=== PATIENT | female | born 1955 | race Caucasian/White ===

== ENCOUNTER 2025-05-02 19:47 | Inpatient (IN) | payer MEDICARE, OTHER, SELFPAY ==
[2025-05-02] VITALS (9 sets, daily range): BP systolic 133–157; BP diastolic 61–85; BMI 26.9; BMI 26.7
[2025-05-02 14:30] LABS: Hematocrit 37.3 % (37.0-47.0); Hemoglobin 12.8 g/dL (12.0-16.0); Mean Corp Hgb Conc. 34.3 g/dL (33.0-37.0); Mean Corpuscular Volume 84.0 fL (81.0-99.0); Platelet Count 222 10^3/uL (130-400); Red Cell Dist. Width 13.7 % (11.5-14.5)
[2025-05-02 14:47] LABS: ALT (SGPT) 86 U/L (0-35); AST (SGOT) 46 U/L (14-36); Albumin 4.4 g/dl (3.5-5.0); Alkaline Phosphatase 118 U/L (38-126); Blood Urea Nitrogen 27 mg/dl (7-17); Calcium 9.4 mg/dl (8.4-10.2); Carbon Dioxide 26 mmol/L (22-30); Chloride 103 mmol/L (98-107); Glucose 126 mg/dl (70-99); Potassium 3.4 mmol/L (3.5-5.1); Sodium 137 mmol/L (135-145); Total Protein 6.6 g/dl (6.3-8.2); eGFR > 60.00
[2025-05-02] MEDS: NSS 1000 IV ×2 (15:07→23:18)
[2025-05-02] MEDS: LOMOTIL 1 TABLET PO (15:08)
[2025-05-02] MEDS: ZOFRAN 4 MG IV (15:09)
[2025-05-02 15:14] LABS: Absolute Neutrophils -Man Diff 19.9 10^3/uL (1.4-6.5)
[2025-05-02 15:15] LABS: Anisocytosis 1+; Macrocytosis 1+; Normal RBC Morphology No; Platelets Checked Yes
[2025-05-02 15:16] LABS: Hypochromasia 1+; Microcytosis 1+; Polychromasia Slight; Total Cells Counted 100
[2025-05-02] MEDS: BENADRYL 25 MG IV (17:16)
[2025-05-02] MEDS: REGLAN 10 MG IV (17:16)
--- NOTE | 2025-05-02 17:38 | ED.GENMED ---
History of Present Illness
General
Chief Complaint: Abdominal Symptoms
Source: patient
Time Seen by Provider: 05/02/25 14:27
History of Present Illness
History of Present Illness:
Note:
CHIEF COMPLAINT(S)
Constant diarrhea and vomiting following chemotherapy for breast cancer.
HISTORY OF PRESENT ILLNESS
The patient is a 69-year-old female with a history of recurrent lobular breast cancer presenting with persistent diarrhea and vomiting since Thursday after starting chemotherapy. The chemotherapy was administered on Thursday. She reported losing 11
pounds due to these symptoms and requested intervention to stop the diarrhea. The symptoms were severe enough that she was unable to reach the bathroom in time. The patient indicated that she had experienced similar symptoms in the past after
chemotherapy but was advised to go to a different hospital and was not aware she could be treated locally. She had contacted her oncologist�s nurse for guidance, and they sent a letter to the current hospital. She denied any fever and any contact
with sick individuals. Her recent white blood cell count dropped to around 400.
EXTERNAL RECORDS REVIEWED
The patient mentioned that a nurse from her oncologist, Dr. Carter, sent a letter regarding her condition and treatment plan for review.
CHRONIC MEDICAL CONDITIONS SIGNIFICANTLY AFFECTING CARE
Recurrent lobular breast cancer.
PHYSICAL EXAM
General: Alert, no acute distress observed.
Skin: Warm, dry.
Head: Normocephalic, atraumatic.
Neck: Supple, trachea midline.
Eye Ears, nose, mouth and throat: Oral mucosa moist.
Cardiovascular: Normal peripheral perfusion, no edema.
Respiratory: Respirations are non-labored.
Gastrointestinal: Abdomen non-tender upon examination, nondistended.
Back: Normal range of motion, normal alignment.
Musculoskeletal: Normal ROM, normal strength.
Neurological: Alert and oriented to person, place, time, and situation, no focal neurological deficits observed.
Psychiatric: Cooperative, appropriate mood and affect.
PROBLEM LIST
Acute:
- Chemotherapy-induced diarrhea and vomiting.
Chronic:
- Recurrent lobular breast cancer.
PLAN
1. Administer intravenous fluids for rehydration.
2. Administer intravenous ondansetron as an anti-nausea medication.
3. Consider using loperamide (Imodium) or diphenoxylate/atropine (Lomotil) for diarrhea management, based on her response.
4. Continue monitoring her symptoms and hydration status.
5. Reassess and escalate antiemetic or antidiarrheal treatments if initial measures are ineffective.
6. Send a stool sample for culture and testing to rule out any infectious causes for diarrhea if conditions worsen or symptoms persist.
7. Encourage the patient to try ice chips and gradually introduce oral intake as tolerated.
DIFFERENTIAL DIAGNOSIS
The Differential Diagnosis includes, in no particular order and is not limited to:
1. Chemotherapy-induced gastroenteritis
2. Infectious gastroenteritis
3. Medication side effects
4. Dehydration
5. Neutropenic enterocolitis
6. Inflammatory bowel disease exacerbation
7. Gastric retention
8. Electrolyte imbalances
9. Small bowel obstruction
10. Pancreatitis
CARE-UPDATE
05/02/25 - 14:58
Patient was instructed to continue oral intake as tolerated and to proceed to the hospital for IV hydration if symptoms persist or worsen. No new acute findings; monitoring at present.
ED Referral Note from [facility]
69yr old w/ ER+/RI+/HER2+ breast cancer in the left axilla diagnosed in 2024
She also has a prior hx of breast cancer in 2002 and 2012
She is s/p bilateral mastectomy completed in 2002
She also has a pacemaker for Grade I Diastolic Dysfunction and follows w/ cardio-oncologist Dr. Mosquera.
She is currently undergoing [facility] from 04/03/2025-present for breast cancer treatment.
Her last infusion was completed 04/24/2025. She reported severe nausea and vomiting over the weekend 04/29-04/30 and was unable to keep food or liquids down. She reported blood in stool and emesis 04/30 but this has since resolved. She is severely
exhausted and is having difficulty speaking. This is ongoing.
Vomiting and diarrhea resolved 05/01 with zofran and lomotil but pt is was still having difficulty with PO intake of fluids and food.
Today 05/02 she reports sore/inflamed GI tract and no ability to taste furthering difficulty with PO intake. She received IV fluids today with [facility] which helped but is still unable to eat. RN advised pt to present to [place] ED for
evaluation of ongoing diarrhea, vomiting, lack of PO intake, and difficulty speaking.
Pt denies chest pain, SOB, fevers, chills, mouth sores, rashes, vomiting, and diarrhea today.
Pt plans to present to [facility] ED today 05/02/2025
I've communicated to her she may have a wait depending on the hospital's boarding situation.
Disposition:
SUMMARY OF ENCOUNTER
The patient, a 69-year-old female undergoing chemotherapy for recurrent lobular breast cancer, presented to the emergency department with persistent nausea and inability to take in fluids leading to dehydration. The nausea is likely a side effect of
chemotherapy. In response to these symptoms, intravenous fluids with dextrose were offered for hydration and symptom control.
DISPOSITION
Admit
EMERGENCY TREATMENTS ADMINISTERED
Intravenous fluids with dextrose.
MANAGEMENT OF THE PATIENTS CARE WAS DISCUSSED WITH
Case was discussed with the patients oncologic nurse at [place].
PLAN
Admit the patient for intravenous hydration and symptom control due to persistent nausea and dehydration likely from chemotherapy side effects.
MEDICATION RECONCILIATION
Administered intravenous fluids with dextrose. Patient received IV Zofran and IV Reglan.
Patient received normal saline solution
Review of labs
My dependent review of the patient's CBC showed leukocytosis likely reaction from Neulasta
MEDICAL DECISION MAKING
-Complexity of Data Reviewed: Chronic conditions affecting care [recurrent lobular breast cancer, history of chemotherapy treatment]
-Data:
Category 3
Discussion of management with other physician, healthcare provider, other source: Patients oncologic nurse at [facility].
-Risk:
Decisions to escalate or limit care: Admission for hydration and symptom control due to high risk of complications from ongoing chemotherapy and dehydration.
DIAGNOSIS
Chemotherapy-induced nausea and dehydration (ICD-10: T45.1X5A)
Phy Exam
Physical Exam
Physical Exam:
.
Course
Orders/Labs/Results
Orders:
Orders
05/02/25 14:19
CMP [Comprehensive Metabolic Panel] Urgent
Complete Blood Count/With Diff Urgent
Magnesium Urgent
Comment: ADD ON
Manual Differential Urgent
05/02/25 14:47
0.9% Sodium Chloride 1000 ml [Nss] 1,000 ml IV BOLUS
Diphenoxylate / Atropine [Lomotil] 1 tablet PO NOW STA
Ondansetron Injectable [Zofran] 4 mg IV NOW STA
05/02/25 16:36
Diphenhydramine [Benadryl] 25 mg IV NOW STA
Metoclopramide [Reglan] 10 mg IV NOW STA
05/02/25 17:05
Electrocardiogram (*1) Urgent
Reason for Study: Vertigo / Dizzy
EKG- Treatment ONCE
05/02/25 18:14
Add On- LAB Urgent
Tests Added?: Mg
Potassium Chloride [KCl] 40 meq 0.9% Sodium Chloride 250 ml [Nss] 250 ml IV NOW
05/02/25 19:00
Dextrose 5%/0.9%Sodchl 1000 ml [D5/0.9% Sodium Chloride] 1,000 ml IV 150 mls/hr
Abnormal Lab Results
05/02/25
14:19
WBC 28.9 H 10^3/uL
(4.8-10.8)
MPV 10.9 H fL
(7.4-10.4)
Abs Neuts (Manual) 19.9 H 10^3/uL
(1.4-6.5)
Lymphocytes (Manual) 14 L %
(20-51)
Potassium 3.4 L mmol/L
(3.5-5.1)
BUN 27 H mg/dl
(7-17)
Glucose 126 H mg/dl
(70-99)
AST 46 H U/L
(14-36)
ALT 86 H U/L
(0-35)
05/02/25 14:19
05/02/25 14:19
Vital Signs
Initial and Last Documented VS:
Initial Vital Signs
Temp Pulse Resp BP Pulse Ox
98.2 F 146 20 143/85 99
05/02/25 13:38 05/02/25 13:38 05/02/25 13:38 05/02/25 13:38 05/02/25 13:38
Last Documented Vital Signs
Temp Pulse Resp BP Pulse Ox
98.2 F 94 16 154/78 100
05/02/25 13:38 05/02/25 18:30 05/02/25 18:30 05/02/25 17:05 05/02/25 17:39
*Pulse Oximetry
SaO2: 100
Oxygen Mode of Delivery: Room air
Patient hypoxic: no
*EKG
Interpreted by ED Provider?: Yes
Interpretation: abnormal
Rate: normal
Rhythm: sinus
QRS Pattern: left bundle branch block
Ischemia: no ischemia
*Residential Substance Abuse Counselor Interpretation
Rate: normal
Interpretation: normal
Rhythm: sinus
*Critical Care Note
Total Time (30-74mins, 75-104mins- exclusive of procedures): Not Applicable
ED Attending Note
-
Portions of this chart may have been created with voice recognition software.� Occasional wrong word or��sound alike� substitutions may have occurred due to the inherent limitations of voice recognition software.
Discharge Plan
Departure
Patient Disposition: Admit
Date of Disposition: 05/02/25
Time of Disposition: 18:10
Admit to: Med/Surg
Presentation/result/management discussed w/ accepting MD/DO: Hospitalist
Discharge Problem:
Intractable vomiting with nausea, Dehydration, Side effects of chemotherapy
Prescriptions:
No Action
ondansetron HCl 8 mg tablet
8 mg PO Q8HPRN PRN (Reason: nausea/vomiting)
diphenoxylate-atropine 2.5-0.025 mg tablet
1 tab PO Q8HPRN PRN (Reason: diarrhea)
tramadol 50 mg Tablet
50 mg PO Q4HPRN PRN (Reason: severe pain)
Patient Comments:
05/02/2025, filled on 04/07/2025 for 30 tabs per PDMP.
pantoprazole 20 mg tablet,delayed release (DR/EC)
20 mg PO HS
dexamethasone 0.5 mg/5 mL elixir
0.5 mg PO Q6H
trazodone 100 mg tablet
100 mg PO HS
dexamethasone 4 mg tablet
0 mg PO DIRECTED
Rx Instructions:
Take 2 tabs (8 mg) BID the day before and the day after chemo treatment.
zolpidem 10 mg tablet
10 mg PO HS
loratadine 10 mg Capsule
10 mg PO DAILY
Referrals:
Lorene Giles MD [Family Provider, Family Practice]
Interventions
Interventions:
*Risk Screen - Suicide Last Done: 05/02/25 13:57
*General Assessment Last Done: 05/02/25 15:16
*Neglect/Abuse Screening Last Done: 05/02/25 13:57
*ED- Fall Risk Assessment Last Done: 05/02/25 15:16
*ED COVID-19 Vaccine History Last Done: 05/02/25 13:38
KN-Fxzfmb-Izyzzbbftc Assessment Last Done: 05/02/25 15:19
Discharge Date and Time
Print Language: ALBANIAN
[2025-05-02 18:59] LABS: Magnesium 1.9 mg/dl (1.6-2.3)
[2025-05-02] MEDS: D5/0.9% SODIUM CHLORIDE 1000 IV (19:20)
--- NOTE | 2025-05-02 19:55 | HPS.HSE ---
Family Physician
-
Family Physician: Lorene Giles MD
Chief Complaint
-
Nausea vomiting and diarrhea
History of Present Illness
69-year-old female with triple positive breast cancer presenting with 4 days of intractable nausea, vomiting, and diarrhea. She has cramping in her abdomen intermittently which resolves when she has a bowel movement. She has been unable to keep
down any solids or liquids. She denies fevers, chills, chest pain, shortness of breath, dysuria, headache. She notes that she had her second round of chemotherapy 8 days ago (04/24). She received Herceptin, Perjeta, carboplatin, Taxotere. She
notes that she had similar symptoms after her first round of chemotherapy but at that time did not present to the hospital. She gets her care with Dr. Valera at [facility].
Medical History
Past Medical History
Past Medical History: Reports Other
Additional Past Medical History:
Triple positive breast cancer
Heart block s/p pacemaker
GERD
Past Surgical History: Reports Other
Additional Past Surgical History:
Pacemaker
Social History
Tobacco: Non-smoker
Alcohol: None
Drug: None
Living: Alone
Employment: Not Employed
Family History
Family History: Not pertinent
Allergies / Home Medications
Allergies reflects when Allergies were last updated in [employer].
Home Medications with original date entered in [employer]
Allergy/Medication List:
Allergies
Allergy/AdvReac Type Severity Reaction Status Date / Time
bacitracin (From Neosporin Allergy Rash Verified 05/02/25 14:01
([id number]))
duloxetine Allergy Rash Verified 05/02/25 14:01
latex Allergy Rash Verified 05/02/25 14:01
levofloxacin (From Levaquin) Allergy hives/rash Verified 05/02/25 14:01
neomycin (From Neosporin Allergy Rash Verified 05/02/25 14:01
([id number]))
polymyxin B (From Neosporin Allergy Rash Verified 05/02/25 14:01
([id number]))
prochlorperazine Allergy Unknown Verified 05/02/25 14:01
Home Medications
dexamethasone 0.5 mg/5 mL oral elixir 0.5 mg PO Q6H 05/02/25
dexamethasone 4 mg tablet 0 mg PO DIRECTED 05/02/25
diphenoxylate-atropine 2.5 mg-0.025 mg tablet 1 tab PO Q8HPRN PRN diarrhea 05/02/25
loratadine 10 mg capsule 10 mg PO DAILY 05/02/25
ondansetron HCl 8 mg tablet 8 mg PO Q8HPRN PRN nausea/vomiting 05/02/25
pantoprazole 20 mg tablet,delayed release 20 mg PO HS 05/02/25
tramadol 50 mg tablet 50 mg PO Q4HPRN PRN severe pain 05/02/25
trazodone 100 mg tablet 100 mg PO HS 05/02/25
zolpidem 10 mg tablet 10 mg PO HS 05/02/25
Review of Systems
-
A 12 point ROS was completed and negative except as noted: Yes
Physical Exam
Vital Signs
Vital Signs
Temp Pulse Resp BP Pulse Ox
98.2 F 89 10 141/77 100
05/02/25 13:38 05/02/25 19:30 05/02/25 19:30 05/02/25 19:00 05/02/25 17:39
Physical Exam
General: Well Developed, Well Nourished and No Apparent Distress
HEENT: Moist mucous membranes, PERRLA and Neck Nontender
Respiratory: Clear; No Wheezes, Rales or Rhonchi
Cardiac: S1/S2 and Regular Rhythm; No Murmur or Rub
GI: Soft, Non Tender, Non Distended and Normal Bowel Sounds; No Organomegaly
Musculoskeletal: No Clubbing, No Cyanosis and No Edema
Skin: Warm and Dry; No Rash
Neuro: Awake, AO x 3 and Nonfocal/grossly intact
Psych: Calm
Laboratory Results
-
05/02/25 14:19
05/02/25 14:19
Laboratory Results
Total Bilirubin 0.7 mg/dl (0.2-1.3) 05/02/25 14:19
AST 46 U/L (14-36) H 05/02/25 14:19
ALT 86 U/L (0-35) H 05/02/25 14:19
Alkaline Phosphatase 118 U/L (38-126) 05/02/25 14:19
Data Reviewed
-
Lab Data: Labs Reviewed by me
Impression/Plan
-
IMPRESSION:
69-year-old female with triple positive breast cancer presenting with intractable nausea, vomiting, and diarrhea after her second round of chemo.
PLAN:
1. Chemotherapy induced nausea vomiting and diarrhea
Similar to symptoms after previous round of chemo
Check lipase
Supportive care with IV Zofran and other antiemetics as needed
Maintenance IV fluids for GI losses
Advance diet as tolerated
2. HER2+ breast cancer
Triple positive, patient reports also has 2 cm mass under her arm and a lymph node
Suspect her leukocytosis is related to this
Follows with Dr. Valera of oncology at [facility]
Next round May 15
Tramadol as needed
3. GERD
Continue PPI
4. Elevated blood pressure -mild
Not on meds at home, continue to monitor for now
5. Sleep disturbance
Takes trazodone and Ambien
DVT PPx
Lovenox
Full code
[2025-05-02 19:56] LABS: Lipase 55 U/L (23-300)
[2025-05-02] MEDS: KCL 270 MEQ IV (20:09)
[2025-05-02] MEDS: DESYREL PO (23:18)
[2025-05-02] MEDS: AMBIEN PO (23:18)
--- NOTE | 2025-05-03 07:04 | W.PN.HOSP.TC ---
Today's Communication/Plan
-
cbc, cmp, stool heme studies, c diff,
If stool studies positive then do CT scan of the abdomen and pelvis.
Assessment / Plan
Assessment / Plan
69-yr old female with k/h/o triple positive breast cancer with B/L mastectomy, Heart block s/p pacemaker presented with nausea,vomiting, diarrhea after receiving second chemotherapy cycle last week.
# Chemotherapy induced nausea, vomiting, diarrhea:
-Patient had similar episodes of diarrhea, nausea, vomiting on previous chemotherapy cycle.
-Heme test stools, C. difficile and WBC and stools were ordered.
-If heme positive or persistent diarrhea and abdominal tenderness will request a CT of the abdomen pelvis.
- Currently vomiting is managed with Zofran 4mg.
- Patient is taking Lomotil (Diphenoxylate HCl/Atropine) for diarrhea.
-Patient is receiving NS 1000ml iv fluids currently.
# Triple positive Breast Cancer:
- Patient is following up with Dr Valera of Oncology at [facility]
-She received Herceptin, Perjeta, carboplatin, Taxotere recently.
- Leucocytosis might be due to recent Filgrastim treatment.
# GERD:
- Patient currently taking Pantoprazole 20 mg once a day.
#Heart Block:
left side below the clavicle pacemaker placed.
DVT prophylaxis: none
Anticipated Discharge: 24 - 48 hours
Subjective/Interval History
-
Date of Service: May 03, 2025
The patient experienced today morning the onset of mild lower abdominal discomfort and mild pain which was relieved by diarrhea. Diarrhea is in black tarry color liquid stools at today morning with 3 episodes. She had a similar episodes in the past
chemotherapy cycle. She does not have fever, chills, palpitation, chest pain.
She is experiencing these symptoms after receiving her second cycle of chemotherapy for triple positive breast cancer 8 days ago.
She had vomiting twice overnight but later it subsided with Zofran. Currently at morning she does not feel nausea, vomit and she is willing to try food today.
Objective Data
-
Labs:
Laboratory Results
05/03/25 06:54
05/03/25 06:54
Laboratory Results
Total Bilirubin 0.7 mg/dl (0.2-1.3) 05/02/25 14:19
AST 46 U/L (14-36) H 05/02/25 14:19
ALT 86 U/L (0-35) H 05/02/25 14:19
Alkaline Phosphatase 118 U/L (38-126) 05/02/25 14:19
Lipase 55 U/L (23-300) 05/02/25 14:19
Vital Signs:
Vital Signs
Temp Pulse Resp BP Pulse Ox
98.4 F 64 18 136/61 95
05/02/25 23:22 05/02/25 23:22 05/02/25 23:22 05/02/25 23:22 05/02/25 23:22
I&O
05/02/25 05/03/25 05/04/25
06:59 06:59 06:59
Intake Total 120 / 120
Balance 120 / 120
Review of Systems
-
History Source: Patient
Constitutional: Reports Weight Loss and Fatigue
Respiratory: Reports No Symptoms
Cardiac: Reports No Symptoms
Abdomen/GI: Reports Abdominal Pain (relieved with diarrhea) and Diarrhea (black stools)
Genitourinary: Reports No Symptoms
Musculoskeletal: Reports No Symptoms
Skin: Reports No Symptoms
Neuro: Reports No Symptoms
Endocrine: Reports No Symptoms
Hematologic / Lymphatic: Reports No Symptoms
Allergy / Immunology: Reports No Symptoms
Physical Exam
-
General: Fever and Cachectic
HEENT: Moist Mucous Membranes
Respiratory: Clear to Auscultation
Cardiac: Regular Rhythm, S1/S2 and Other (she has a pacemaker on her left side below the clavicle. )
Breast: Other (b/l mastectomy with surgical scar+)
GI: Soft, Normal Bowel Sounds and Tender (mild tender at lower abdomen. )
Rectal: Black
Genito-urinary: No Costovertebral Tender
Musculoskeletal: No Clubbing
Skin: Warm
Neuro: AO x 3
Hematologic / Lymphatic: No Lymphadenopathy
Psych: Calm
[2025-05-03 07:37] LABS: Hematocrit 33.9 % (37.0-47.0); Hemoglobin 11.4 g/dL (12.0-16.0); Mean Corp Hgb Conc. 33.6 g/dL (33.0-37.0); Mean Corpuscular Volume 85.2 fL (81.0-99.0); Platelet Count 214 10^3/uL (130-400); Red Cell Dist. Width 14.1 % (11.5-14.5)
[2025-05-03 07:45] VITALS: BP 148/77
[2025-05-03 08:02] LABS: Blood Urea Nitrogen 18 mg/dl (7-17); Calcium 8.7 mg/dl (8.4-10.2); Carbon Dioxide 24 mmol/L (22-30); Chloride 110 mmol/L (98-107); Estimated Creatinine Clearance 63 ml/min; Glucose 96 mg/dl (70-99); Potassium 3.5 mmol/L (3.5-5.1); Sodium 140 mmol/L (135-145); eGFR > 60.00
[2025-05-03] MEDS: CLARITIN PO (08:26)
[2025-05-03] MEDS: LOMOTIL 1 TABLET PO ×2 (08:26→18:21)
[2025-05-03 08:29] LABS: Absolute Neutrophils -Man Diff 35.7 10^3/uL (1.4-6.5)
[2025-05-03 08:30] LABS: Normal RBC Morphology No; Platelets Checked Yes
[2025-05-03 08:31] LABS: Acanthocytes 1+; Anisocytosis 1+; Hypochromasia Slight; Ovalocytes FEW; Polychromasia Slight; Total Cells Counted 100
[2025-05-03] MEDS: NSS 1000 IV ×2 (13:23→22:17)
--- NOTE | 2025-05-03 13:41 | CM ---
Reviewed the chart notes and spoke with the patient at the bedside. Patient resides alone in a second floor apartment with steps to enter. The patient reports no DME or SNF in the past. The patient is current with [facility]. The patient
confirmed her pharmacy of choice is [facility]. CM continues to be available to patient/family and is monitoring medical plan for needs at discharge.
Plan: Discharge plans will depend on the patient's progress.
[facility]
--- NOTE | 2025-05-03 15:01 | W.PN.UPDATE ---
Update Note
Progress Note Update
Seen and examined by me independently in collaboration with the biomedical service engineer.
Lab data and imaging data reviewed.
Addendum as below :
Patient complains of a ongoing diarrhea and she has seen stools to be black. Abdominal cramping is noted. No vomiting currently.
Afebrile. Abdomen soft with nonspecific discomfort in the right upper and lower quadrant without rebound guarding rigidity.
H&H is okay.
Leukocytosis suspect may be related to her Neulasta dose.
Check heme test stools, C. difficile and WBC and stools.
If heme positive or persistent diarrhea and abdominal tenderness will request a CT of the abdomen pelvis.
Continue with current supportive care.
[2025-05-03 15:52] VITALS: BP 150/78
[2025-05-03 17:26] VITALS: BMI 26.7
[2025-05-03] MEDS: LOVENOX 40 MG SC (17:30)
[2025-05-03] MEDS: MAGIC OR MIRACLE MOUTHWASH 10 ML PO (22:18)
[2025-05-03] MEDS: TIGAN 200 MG IM (22:18)
[2025-05-03] MEDS: AMBIEN PO (22:35)
[2025-05-03] MEDS: DESYREL PO (22:35)
[2025-05-03 23:07] VITALS: BP 146/69
[2025-05-04] MEDS: TIGAN 200 MG IM ×2 (05:17→20:46)
--- NOTE | 2025-05-04 05:58 | W.PN.HOSP.TC ---
Addendum entered and electronically signed by Yadiel Whelan MD 05/04/25 13:18:
Seen and examined by me independently in collaboration with the health care / medical job titles.
Lab data and imaging data reviewed.
Addendum as below :
Patient with continued GI symptoms and has associated blood in the stools. Still some right-sided abdominal discomfort. No fevers. Not septic.
CT confirms severe pancolitis. C. difficile negative.
Check routine stool cultures, WBC.
Start on IV Zosyn. Consult GI.
Total time spent on today's encounter was 52 minutes which included time spent in counseling the patient/family regarding diagnosis and treatment plan as listed above, goals of care, and symptom management. Case was discussed with nursing staff,
specialists, and care coordinators/case management. All labs and imaging personally reviewed by me. Remainder the time spent in detailed review of previous records, lab data, imaging, and other medical provider documentation.
Original Note:
Today's Communication/Plan
-
cbc, cmp
ct scan abdomen, pelvis order placed.
Assessment / Plan
Assessment / Plan
69-yr old female with k/h/o triple positive breast cancer with B/L mastectomy, Heart block s/p pacemaker presented with nausea,vomiting, diarrhea after receiving second chemotherapy cycle last week.
# Chemotherapy induced nausea, vomiting, diarrhea:
-Patient had similar episodes of diarrhea, nausea, vomiting on previous chemotherapy cycle.
-Heme stool test positive
- Stool WBC count ordered.
-C. difficile culture showed negative.
-Stool heme positive, persistent diarrhea and abdominal tenderness and CT scan of abdomen and pelvis with contrast is placed to rule out the bleeding causes as an infection or inflammatory diseases.
- Currently vomiting is managed with Zofran 4mg.
- Patient is taking Lomotil (Diphenoxylate HCl/Atropine) for diarrhea which is not improving the symptoms.
-Patient is receiving NS 1000ml iv fluids currently.
# Triple positive Breast Cancer:
- Patient is following up with Dr Valera of Oncology at [place]
-She received Herceptin, Perjeta, carboplatin, Taxotere recently.
- Leucocytosis 63.8 h might be due to recent Filgrastim treatment.
# GERD:
- Patient currently taking Pantoprazole 40 mg BID.
#Heart Block:
left side below the clavicle pacemaker placed.
the pt is stable.
DVT prophylaxis: none
Anticipated Discharge: > 48 hours
Subjective/Interval History
-
Date of Service: May 04, 2025
Overnight pt was continuously nauseating, vomiting for more than 3 episodes so far she remembered, and it was clear fluid, without retching and not associated with upper abdominal pain, feeling better after receiving zofran. She tried to eat food
yesterday but after few bites she started to experience nausea, vomiting.
Diarrhea she experienced today morning continuously for more than 3 episodes, and nurse noticed its black stools and Heme stool test result is positive.
Objective Data
-
Labs:
05/04/25 06:50
05/04/25 06:50
Laboratory Results
Total Bilirubin 0.5 mg/dl (0.2-1.3) 05/04/25 06:50
AST 35 U/L (14-36) 05/04/25 06:50
ALT 47 U/L (0-35) H 05/04/25 06:50
Alkaline Phosphatase 164 U/L (38-126) H 05/04/25 06:50
Lipase 55 U/L (23-300) 05/02/25 14:19
Laboratory Results
Vital Signs:
Vital Signs
Temp Pulse Resp BP Pulse Ox
98.7 F 81 18 146/69 97
05/03/25 23:07 05/03/25 23:07 05/03/25 23:07 05/03/25 23:07 05/03/25 23:07
I&O
05/02/25 05/03/25 05/04/25
06:59 06:59 06:59
Intake Total 120 / 120 1180 / 1180
Balance 120 / 120 1180 / 1180
Review of Systems
-
History Source: Patient
Constitutional: Reports Weight Loss and Fatigue
EENT: Reports Other (fpt is feeling reddish, dry face which usually she experiences after chemotherapy cycle. )
Respiratory: Reports No Symptoms
Cardiac: Reports No Symptoms
Abdomen/GI: Reports Abdominal Pain (right side lower abdominal pain which releived after bowel movement. ), Nausea, Vomiting, Diarrhea (with black stools) and Black Stools
Genitourinary: Reports No Symptoms
Musculoskeletal: Reports No Symptoms
Skin: Reports No Symptoms
Neuro: Reports No Symptoms
Endocrine: Reports No Symptoms
Hematologic / Lymphatic: Reports No Symptoms
Allergy / Immunology: Reports No Symptoms
Physical Exam
-
General: Other (mild distress because of ongoing problem.)
Respiratory: Clear to Auscultation
Cardiac: Regular Rhythm and S1/S2
Breast: Other (b/l mastectomy)
GI: Tender (mild tenderness present at right lower quadrant ) and Flat
Rectal: Hem Positive and Other (Ecchymosis around 11 cm around the rectal area (round, flat, non tender))
Genito-urinary: No Costovertebral Tender
Musculoskeletal: No Clubbing
Skin: Warm
Neuro: AO x 3
Hematologic / Lymphatic: No Lymphadenopathy
Psych: Calm
[2025-05-04] MEDS: NSS 1000 IV (07:29)
[2025-05-04] MEDS: MAGIC OR MIRACLE MOUTHWASH PO ×3 (07:29→17:09)
[2025-05-04] MEDS: CLARITIN PO (07:32)
[2025-05-04 07:47] LABS: Hematocrit 30.8 % (37.0-47.0); Hemoglobin 10.3 g/dL (12.0-16.0); Mean Corp Hgb Conc. 33.4 g/dL (33.0-37.0); Mean Corpuscular Volume 86.8 fL (81.0-99.0); Platelet Count 201 10^3/uL (130-400); Red Cell Dist. Width 14.5 % (11.5-14.5)
[2025-05-04 07:48] VITALS: BP 151/83
[2025-05-04 08:05] LABS: Absolute Neutrophils -Man Diff 54.8 10^3/uL (1.4-6.5); Platelets Checked Yes
[2025-05-04 08:06] LABS: Anisocytosis 1+; Hypochromasia Slight; Normal RBC Morphology No; Ovalocytes FEW; Polychromasia 1+; Total Cells Counted 100
[2025-05-04 08:09] LABS: ALT (SGPT) 47 U/L (0-35); AST (SGOT) 35 U/L (14-36); Albumin 3.6 g/dl (3.5-5.0); Alkaline Phosphatase 164 U/L (38-126); Blood Urea Nitrogen 11 mg/dl (7-17); Calcium 8.9 mg/dl (8.4-10.2); Carbon Dioxide 24 mmol/L (22-30); Chloride 108 mmol/L (98-107); Estimated Creatinine Clearance 72 ml/min; Glucose 75 mg/dl (70-99); Potassium 3.2 mmol/L (3.5-5.1); Sodium 140 mmol/L (135-145); Total Protein 5.5 g/dl (6.3-8.2); eGFR > 60.00
[2025-05-04] MEDS: PROTONIX 40 MG PO (09:03)
[2025-05-04] MEDS: ZOFRAN 4 MG IV (09:03)
[2025-05-04] MEDS: OMNIPAQUE 50 ML PO (09:15)
--- NOTE | 2025-05-04 11:30 | PTCARENOTE ---
pt only able to tolerate 1 cup of oral contrast with IV zofran . CT department aware. IVF continue, x1 loose green stool. CB in reach, no change in physical assessment
--- NOTE | 2025-05-04 13:35 | CM ---
Reviewed the chart notes. Per note, patient to start on IV abx for CT confirmed severe pancolitis. CM continues to be available to patient/family and is monitoring medical plan for needs at discharge.
Plan: Discharge plans will depend on the patient's progress.
[2025-05-04] MEDS: LOMOTIL 1 TABLET PO (15:00)
[2025-05-04] MEDS: KCL 260 MEQ IV (15:03)
[2025-05-04 15:55] VITALS: BP 141/76
[2025-05-04] MEDS: ZOSYN 50 IV (16:00)
[2025-05-04] MEDS: LOVENOX SC (17:09)
[2025-05-04] MEDS: PROTONIX PO (21:56)
[2025-05-04] MEDS: DESYREL PO (23:05)
[2025-05-04] MEDS: AMBIEN PO (23:05)
[2025-05-04 23:32] VITALS: BP 149/75
[2025-05-05] MEDS: ZOSYN 50 IV ×4 (02:01→20:57)
[2025-05-05] MEDS: NSS 1000 IV ×2 (02:02→09:28)
[2025-05-05] MEDS: TIGAN 200 MG IM ×2 (02:27→08:55)
[2025-05-05] MEDS: LOMOTIL 1 TABLET PO ×3 (02:28→20:58)
[2025-05-05] MEDS: MAGIC OR MIRACLE MOUTHWASH PO ×5 (03:16→22:28)
--- NOTE | 2025-05-05 06:38 | W.PN.HOSP.TC ---
Today's Communication/Plan
-
CBC, CMP
Assessment / Plan
Assessment / Plan
69-yr old female with k/h/o triple positive breast cancer with B/L mastectomy, Heart block s/p pacemaker presented with nausea,vomiting, diarrhea after receiving second chemotherapy cycle last week.
# Diarrhea possibly due to Upper Gastro intestinal bleeding:
-Heme stool test positive
- Stool WBC count ordered
- WBC Count 52.7 (H)
-C. difficile culture showed negative.
-CT scan of abdomen and pelvis with contrast shows-There is pronounced wall thickening and mesenteric inflammatory change adjacent to the rectum, sigmoid colon, descending colon, transverse colon (pancolitis)
- Piptaz 3.375 g in 50 [id number] ml/hr IV Q6H
- Patient is taking Lomotil (Diphenoxylate HCl/Atropine) for diarrhea which is not improving the symptoms.
-Patient is receiving NS 1000ml iv fluids currently.
-Potassium 3.1 and repletion placed depending on the improvement.
-Patient Zofran was stopped because of the QTc interval around 486 ms, prolongation, and she has latex allergy which has an interaction with prochlorperazine so decided to go with Trimethobenzamide.
- Transfuse blood if Hb less than 9 mg/dl
-GIT consulted: Pantoprazole 40 mg BID PO changed to IV.
# Triple positive Breast Cancer:
-Patient is following up with Dr Valera of Oncology at [facility]
-She received Herceptin, Perjeta, carboplatin, Taxotere recently.
-Leucocytosis 63.8 h might be due to recent Filgrastim treatment.
# GERD:
- Patient currently taking Pantoprazole 40 mg BID.
#Heart Block:
left side below the clavicle pacemaker placed.
the pt is stable.
DVT prophylaxis: none
Anticipated Discharge: > 48 hours
Subjective/Interval History
-
Date of Service: May 05
Overnight concern for black smelly stool for 3 episodes and at the final episode she had incontinence and passed stools at her bed; she experienced which is� vomiting with clear fluid, which is not relieved with antiemetic trimethobenzamide.
�
Patient feels tired, she had 3 sips of milk yesterday evening.
Objective Data
-
Labs:
05/05/25 07:10
05/05/25 07:10
Laboratory Results
Lactic Acid 0.6 mmol/L (0.7-2.0) L 05/05/25 07:09
Total Bilirubin 0.6 mg/dl (0.2-1.3) 05/05/25 07:10
AST 25 U/L (14-36) 05/05/25 07:10
ALT 34 U/L (0-35) 05/05/25 07:10
Alkaline Phosphatase 116 U/L (38-126) 05/05/25 07:10
Lipase 55 U/L (23-300) 05/02/25 14:19
Laboratory Results
Vital Signs:
Vital Signs
Temp Pulse Resp BP Pulse Ox
99.2 F 77 16 149/75 97
05/04/25 23:32 05/04/25 23:32 05/04/25 23:32 05/04/25 23:32 05/04/25 23:32
I&O
05/03/25 05/04/25 05/05/25
06:59 06:59 06:59
Intake Total 120 / 120 1180 / 1180
Output Total /
Balance 120 / 120 1177 / 1177
Review of Systems
-
History Source: Patient
Constitutional: Reports Fatigue and Weakness
Respiratory: Reports No Symptoms
Abdomen/GI: Reports Nausea (patient felt nausea but his symptoms got improved from yesterday. ), Vomiting (improved symptoms comparing with yesterday. She had clear fluid mostly retching. ), Diarrhea (black loose, foul smelling stools with
incontinence) and Black Stools
Breast: Reports No Symptoms
Genitourinary: Reports No Symptoms
Musculoskeletal: Reports No Symptoms
Skin: Reports No Symptoms
Neuro: Reports No Symptoms
Endocrine: Reports No Symptoms
Hematologic / Lymphatic: Reports No Symptoms
Allergy / Immunology: Reports No Symptoms
Physical Exam
-
General: Appears in Distress (because of the current symptoms.)
HEENT: Moist Mucous Membranes
Respiratory: Clear to Auscultation
Cardiac: Regular Rhythm and S1/S2
Breast: Other (b/l mastectomy)
GI: Soft and Nontender (tenderness (10/21))
Rectal: Hem Positive
Genito-urinary: No Costovertebral Tender
Musculoskeletal: No Clubbing
Skin: Warm
Neuro: AO x 3
Hematologic / Lymphatic: No Lymphadenopathy
Psych: Calm
[2025-05-05 07:39] LABS: Hematocrit 27.6 % (37.0-47.0); Hemoglobin 9.5 g/dL (12.0-16.0); Mean Corp Hgb Conc. 34.4 g/dL (33.0-37.0); Mean Corpuscular Volume 86.0 fL (81.0-99.0); Platelet Count 178 10^3/uL (130-400); Red Cell Dist. Width 14.8 % (11.5-14.5)
[2025-05-05 07:50] VITALS: BP 138/70
[2025-05-05 07:53] LABS: ALT (SGPT) 34 U/L (0-35); AST (SGOT) 25 U/L (14-36); Albumin 3.0 g/dl (3.5-5.0); Alkaline Phosphatase 116 U/L (38-126); Blood Urea Nitrogen 6 mg/dl (7-17); Calcium 8.4 mg/dl (8.4-10.2); Carbon Dioxide 23 mmol/L (22-30); Chloride 107 mmol/L (98-107); Estimated Creatinine Clearance 72 ml/min; Glucose 73 mg/dl (70-99); Potassium 3.1 mmol/L (3.5-5.1); Procalcitonin 0.20 ng/ml (0.0-0.25); Sodium 136 mmol/L (135-145); Total Protein 5.0 g/dl (6.3-8.2); eGFR > 60.00
[2025-05-05] MEDS: PROTONIX PO (08:29)
[2025-05-05] MEDS: CLARITIN PO (08:29)
[2025-05-05 08:36] LABS: Nucleated Red Blood Cells % 0 %
[2025-05-05] MEDS: KCL 260 MEQ IV (09:26)
[2025-05-05 09:38] LABS: Magnesium 1.6 mg/dl (1.6-2.3)
--- NOTE | 2025-05-05 10:17 | CON.GI ---
Addendum entered and electronically signed by Jeffy Leggett DO 05/05/25 15:31:
I saw and examined the patient.
The CLASSIFICATION CONTROL CLERK's note was reviewed and I agree with the note.
Comment: Ms Benz is a 69 y.o female with past medical history notable for triple-positive breast cancer (s/p b/l mastectomy, chemo/XRT in 2002) complicated by recurrence on second-round of chemo (last dose on 04/24 on Herceptin, Perjeta,
carboplatin, Taxotere) who presented to the ED on 05/02/25 with nausea/vomiting and bloody diarrhea. Of note, patient notes previous similar symptoms in the past after receiving her first round of chemotherapy but never had symptoms as severe as this
thus causing her to present at the hospital. Labs on admission revealed marked leukocytosis with WBC 63k along with CT imaging demonstrating severe pancolitis likely infectious versus inflammatory. Repeat labs today with WBC 52k, Hgb 9.5 (previously
12s) and plts 178. Etiology of patient's acute, pancolitis seems most consistent acute infectious versus chemo-induced versus immune colitis although seems less likely and in discussion with patient's Oncology team not felt be related to ICI. Recent
C Diff negative pending rest of stool studies. She appears to be improving without any abdominal pain/discomfort and having less diarrhea. Favor continuing empiric IV Zosyn along with IVF and anti-diarrheals with Lomotil as C Diff ruled out. Would
continue ongoing supportive as below along with anti-emetics. See rest of care as outlined below.
GI will continue to follow, please call with any questions or concerns.
Addendum entered and electronically signed by AZALIA Lassiter 05/05/25 13:22:
to clarify-- severe pancolitis likely acute from recent chemo-- stool cx still pending to exclude infection.
Original Note:
Consultation
-
Date/Time Consultation Requested: 05/05/25 0700
Date/Time Consultation Performed: 05/05/25 1015
Requesting Provider: Tucker Martinez MD
Performing Provider: AZALIA Rosas, Jeffy Leggett DO
Reason for Consultation: leukocytosis, GI symptoms with breast CA treatment
Medical History
Chief Complaint / HPI
Chief Complaint: nausea, vomiting, diarrhea
History of Present Illness:
Pt is a 69yo with hx triple positive breast CA than was originally diagnosed 2002 with B/l mastectomy/chemo/radiation then recurrent in 2012 with chemo/radiation and now with left sided axillary mass noted on February. She is now noted 4 day prior to
admission with nausea, vomiting and diarrhea with admission 05/02. Per admission pt has been on Herceptin, Perjeta, carboplatin, Taxotere with care with Dr. Lambert at [place]. She completed first round with similar symptoms but not as severe for 2-3
weeks after treatment in March then last treatment 04/24- with neulasta on 04/25. On admission also noted with leukocytosis with WBC up to 63,800. In review with patient she states continued symptoms. She is able to take some liquid but minimal. She
is concerned about Zofran and QT. Tigan helps for a few hours and unable to take PPI orally. She abdominal to abdominal pain with diarrhea and stool have been every 2-3 hours all liquid. She also admits to black stools at times. She had mild
dysphagia but able to drink and otherwise denies hx constipation or rectal bleeding. + wt loss unsure of amount. CT on admission --Severe pancolitis, likely infectious or inflammatory. No pneumatosis intestinalis or extraluminal air. labs with wBC
52,700, hbg 9.5, platelets 178, K 3.1,LFT elevated on admission now normal.
Past Medical History
Past Medical History: Arrhythmias (heart block ) and Other
Past Surgical History: Cardiac (pacer)
Social History
Tobacco: Non-Smoker
Alcohol: None
Drug: None
Living: Alone (friends assisting with care )
Employment: Retired
Family History
Family History: Other (sister ovarian CA, mother breast Ca with mets, father bladder CA, daughter of GSW)
Allergies / Home Medications
Allergy/AdvReac Type Severity Reaction Status Date / Time
bacitracin (From Neosporin Allergy Rash Verified 05/02/25 14:01
([id number]))
duloxetine Allergy Rash Verified 05/02/25 14:01
latex Allergy Rash Verified 05/02/25 14:01
levofloxacin (From Levaquin) Allergy hives/rash Verified 05/02/25 14:01
neomycin (From Neosporin Allergy Rash Verified 05/02/25 14:01
([id number]))
polymyxin B (From Neosporin Allergy Rash Verified 05/02/25 14:01
([id number]))
prochlorperazine Allergy Unknown Verified 05/02/25 14:01
�Medication �Instructions �Recorded
dexamethasone 0.5 mg/5 mL oral 0.5 mg PO Q6H Anti-Inflammatory 05/02/25
elixir
dexamethasone 4 mg tablet 0 mg PO DIRECTED 05/02/25
diphenoxylate-atropine 2.5 1 tab PO Q8HPRN PRN diarrhea 05/02/25
mg-0.025 mg tablet
loratadine 10 mg capsule 10 mg PO DAILY Allergies 05/02/25
ondansetron HCl 8 mg tablet 8 mg PO Q8HPRN PRN nausea/vomiting 05/02/25
pantoprazole 20 mg tablet,delayed 20 mg PO HS Gastrointestinal Issue 05/02/25
release
tramadol 50 mg tablet 50 mg PO Q4HPRN PRN severe pain 05/02/25
trazodone 100 mg tablet 100 mg PO HS Sleep 05/02/25
zolpidem 10 mg tablet 10 mg PO HS Sleep 05/02/25
Review of Systems
-
History Source: Patient
Constitutional: Reports Weight Loss
EENT: Reports No Symptoms
Respiratory: Reports No Symptoms
Cardiac: Reports No Symptoms
Abdomen/GI: Reports Abdominal Pain, Nausea, Vomiting, Diarrhea and Black Stools
: Reports No Symptoms
Musculoskeletal: Reports No Symptoms
Neurological: Reports Weakness
Endocrine: Reports No Symptoms
Hematologic/Lymphatic: Reports No Symptoms
Vital Signs
Temp Pulse Resp BP Pulse Ox
98.0 F 69 16 138/70 95
05/05/25 07:50 05/05/25 07:50 05/05/25 07:50 05/05/25 07:50 05/05/25 07:50
Physical Exam
Exam
General: Well Developed, Well Nourished and Other (conversant )
HEENT: Normocephalic and Anicteric
Respiratory: Clear
Cardiac: Regular Rhythm
GI: Soft, Non Distended and Tender (mild)
Musculoskeletal: No Clubbing and No Cyanosis
Skin: Warm and Dry
Neuro: Awake, Alert and AO x 3
Psych: Calm
Results
WBC 52.7 10^3/uL (4.8-10.8) H* 05/05/25 07:10
Hgb 9.5 g/dL (12.0-16.0) L 05/05/25 07:10
Hct 27.6 % (37.0-47.0) L 05/05/25 07:10
MCV 86.0 fL (81.0-99.0) 05/05/25 07:10
Plt Count 178 10^3/uL (130-400) 05/05/25 07:10
Absolute Neuts (auto) 42.7 10^3/uL (1.4-6.5) H 05/05/25 07:10
Sodium 136 mmol/L (135-145) 05/05/25 07:10
Potassium 3.1 mmol/L (3.5-5.1) L 05/05/25 07:10
Chloride 107 mmol/L (98-107) 05/05/25 07:10
Carbon Dioxide 23 mmol/L (22-30) 05/05/25 07:10
BUN 6 mg/dl (7-17) L 05/05/25 07:10
Creatinine 0.7 mg/dL (0.6-1.0) 05/05/25 07:10
Calcium 8.4 mg/dl (8.4-10.2) 05/05/25 07:10
Total Bilirubin 0.6 mg/dl (0.2-1.3) 05/05/25 07:10
AST 25 U/L (14-36) 05/05/25 07:10
ALT 34 U/L (0-35) 05/05/25 07:10
Alkaline Phosphatase 116 U/L (38-126) 05/05/25 07:10
Lipase 55 U/L (23-300) 05/02/25 14:19
Diagnostic Image Results:
05/04/25 CT Abd/pelvis W/wo Iv Cont
Severe pancolitis, likely infectious or inflammatory. No pneumatosis intestinalis or extraluminal air.
Assessment / Plan
-
Pt is a 69yo with hx triple positive breast CA than was originally diagnosed 2002 with B/l mastectomy/chemo/radiation then recurrent in 2012 with chemo/radiation and now with left sided axillary mass noted on February. She is now noted 4 day prior to
admission with nausea, vomiting and diarrhea with admission 05/02. Per admission pt has been on Herceptin, Perjeta, carboplatin, Taxotere with care with Dr. Lambert at [place]. She completed first round with similar symptoms but not as severe for 2-3
weeks after treatment in March then last treatment 04/24- with neulasta on 04/25. On admission also noted with leukocytosis with WBC up to 63,800. In review with patient she states continued symptoms. She is able to take some liquid but minimal. She
is concerned about Zofran and QT. Tigan helps for a few hours and unable to take PPI orally. She abdominal to abdominal pain with diarrhea and stool have been every 2-3 hours all liquid. She also admits to black stools at times. She had mild
dysphagia but able to drink and otherwise denies hx constipation or rectal bleeding. + wt loss unsure of amount. CT on admission --Severe pancolitis, likely infectious or inflammatory. No pneumatosis intestinalis or extraluminal air. labs with wBC
52,700, hbg 9.5, platelets 178, K 3.1,LFT elevated on admission now normal.
-nausea, vomiting, abdominal pain, diarrhea
-breast CA-- 2nd recurrence since February with recent rx with Herceptin, Perjeta, carboplatin, Taxotere
-leukocytosis with recent neulasta
-report of dark stool
-pancytopenia
-hypokalemia
other med problems:
-pacer with prior heart block
-GERD
PLAN:
Etiology of symptoms likely related to recent breast CA treatment -- see side effect GI profile per lexicomp below
cont supportive care with IVF, antiemetics,diet as tolerated
pt willing to start ensure BID
will change PPI to IV BID will give dose now
change Lomotil to TID standing dose
can consider RTC Zofran but QTC higher will hold for now continue Tigan as needed
monitor for recurrent dark stools and trend hbg -- support with transfusion as needed -- may be oozing with pancolitis- if persist would hold lovenox
replete K per medical team-- persistently low since admission
reviewed with patient may take time but track for slow improvement -- took 2-3 weeks with first chemo course
med review per lexicomp:
herceptin Gastrointestinal: Abdominal pain (22%; upper abdominal pain: 2%), anorexia (14%), diarrhea (7% to 25%), nausea (6% to 33%), vomiting (4% to 23%)
Pertuzumab Gastrointestinal: Abdominal pain (22%; upper abdominal pain: 2%), anorexia (14%), diarrhea (7% to 25%), nausea (6% to 33%), vomiting (4% to 23%)
carboplatin Gastrointestinal: Gastrointestinal pain (17%), nausea (10% to 15%), nausea and vomiting (92%), vomiting (65% to 81%; severe vomitin%)
taxotere Gastrointestinal: Diarrhea (23% to 43%; severe diarrhea: <=%), nausea (34% to 42%; severe nausea: <=%), stomatitis (19% to 53%; grades 3/4: 2%), vomiting (22% to 23%; severe vomiting: <=%)
-
-
Thank you for consultation and allowing me to participate in the patient's care. Please call the supervisor sample preparation GI physician during the after hours with any questions or concerns.
[2025-05-05] MEDS: PROTONIX IV 40 MG IV ×2 (11:59→20:58)
--- NOTE | 2025-05-05 12:35 | PN.CDI ---
CDI
- -
CDI:
Physician Documentation Request
Admit Date: 05/02/25 19:47
Dear Joan Topete
GI consult states 'CT on admission--Severe pancolitis...'
Please provide additional specificity regarding the type and acuity of colitis:
1. Acuity
Acute
Chronic
other
2. Type:
Infectious - indicate known or suspected organism (c. difficile or other)
Ischemic
Ulcerative - any associated complications (bleeding, obstruction, fistula, abscess etc.)
Non-infectious
Other - please specify
Use of terms such as suspected, likely, concern for, or probable (associated with a specific diagnosis that is being evaluated, monitored, or treated as if it exists) are acceptable and can be coded in the inpatient setting, when documented at the
time of discharge.
Thank you,
Elena Funk RN, BSN
CDI Specialist
tiger text
Please use your independent medical judgment in providing your response.
--- NOTE | 2025-05-05 13:33 | W.PN.UPDATE ---
Update Note
Progress Note Update
Seen and examined by me independently in collaboration with the senior medical technologist.
Lab data and imaging data reviewed.
Addendum as below :
Patient with breast cancer on chemotherapy presents with acute colitis with bloody diarrhea. Discussed with oncology team yesterday and immune colitis is felt less likely based on her regimen.
Await stool cultures. Continue with IV Zosyn.
Patient still with ongoing GI symptoms of nausea and diarrhea. Continue with Tigan. QTc is 473 but patient has left bundle branch block. Correct potassium and magnesium and use Compazine as needed if Tigan is not effective.
--- NOTE | 2025-05-05 13:36 | PTCARENOTE ---
IV K ordered as 40meq/100mL. made aware that this medication cannot be given through peripheral line or without telemetry monitoring, no new orders at this time.
[2025-05-05] MEDS: MAGNESIUM SULFATE 100 IV (14:24)
--- NOTE | 2025-05-05 15:04 | CM ---
Reviewed the chart notes. Patient continues with IV abx. CM continues to be available to patient/family and is monitoring medical plan for needs at discharge.
Plan: Discharge plans will depend on the patient' progress.
[2025-05-05 15:20] VITALS: BP 130/99
[2025-05-05] MEDS: KCL 270 MEQ IV (15:35)
[2025-05-05] MEDS: LOVENOX SC (17:06)
[2025-05-05] MEDS: PEPCID 20 MG IV (20:58)
[2025-05-05] MEDS: NSS (PRESERVATIVE FREE) 10 ML IV (20:58)
[2025-05-05] MEDS: NSS (PRESERVATIVE FREE) 8 ML IV (20:59)
[2025-05-05] MEDS: DECADRON 4 MG IV (20:59)
[2025-05-05] MEDS: BENADRYL 25 MG IV (21:00)
--- NOTE | 2025-05-05 21:25 | W.PN.UPDATE ---
Addendum entered and electronically signed by AZALIA Lcuas 05/06/25 03:39:
feel like eyes getting infection. Mild crusting trouble opening this am
will start erythromycin oint qid
Original Note:
Update Note
Progress Note Update
2030 asked to eval pt for increasing rash and edema to face and chest.
Background: 69yo immunocompromised pt undergoing treatment for breast cancer. She was admitted 7. with abd pain diarrhea and vomiting found to have colitis.
At bedside pt states she has noted some redness to face and chest the last couple days. She did not mention it to doctors before because it wasn't bothersome. But tonight she noticed facial edema and increased redness to face (L>R side) and to mid
chest. There is a noticeable gela from previous tele lead. She states she has allergy to adhesives. Per pt face feels warms and burning sensation. Left eye orbital with edema. No signs of respiratory distress.
New meds include: zosyn, lovenox and tigan (all started arond 05/04). Pt states has abx allergy to levaquin (rash/ hives). My Concern is maybe about abx allergy- pt states when she has an allergic reaction to things its mostly right away so she is
not convinced it's abx at this time. Will keep current medications for now. Will give her benadryl, pepcid and dose of benadryl. Pt agreed to this plan.,
[2025-05-05] MEDS: AMBIEN PO (22:28)
[2025-05-05] MEDS: DESYREL PO (22:28)
[2025-05-05 23:56] VITALS: BP 136/72
[2025-05-06] MEDS: ZOSYN 50 IV ×2 (01:06→06:34)
[2025-05-06] MEDS: NSS 1000 IV (01:07)
[2025-05-06] MEDS: LOMOTIL 1 TABLET PO ×3 (04:05→21:07)
[2025-05-06] MEDS: BENADRYL 25 MG IV ×3 (04:05→15:38)
[2025-05-06] MEDS: ERYTHROMYCIN 0.5% OPHTHALMIC OINTMENT 1 APPLIC OPHTH ×5 (04:05→21:08)
--- NOTE | 2025-05-06 05:58 | W.PN.GI.CBS2 ---
Today's Communication / Plan
-
Reports improving diarrhea while in IV abx. Continue ongoing lomotil and supportive care. No plans for a colonoscopy at this time. See rest of care as outlined below.
Assessment / Plan
-
#Nausea/Vomiting
#Abdominal Pain #Diarrhea
#Pancolitis on CT Imaging
#Leukocytosis (recent Neulasta)
#Pancytopenia
Impression: Ms Benz is a 69 y.o female with past medical history notable for triple-positive breast cancer (s/p b/l mastectomy, chemo/XRT in 2002) complicated by recurrence on second-round of chemo (last dose on 04/24 on Herceptin, Perjeta,
carboplatin, Taxotere) who presented to the ED on 05/02/25 with nausea/vomiting and bloody diarrhea. Of note, patient notes previous similar symptoms in the past after receiving her first round of chemotherapy but never had symptoms as severe as this
thus causing her to present at the hospital. Labs on admission revealed marked leukocytosis with WBC 63k along with CT imaging demonstrating severe pancolitis likely infectious versus inflammatory. Repeat labs today with WBC 52k, Hgb 9.5 (previously
12s) and plts 178. Etiology of patient's acute, pancolitis seems most consistent acute infectious versus chemo-induced versus immune colitis although seems less likely and in discussion with patient's Oncology team not felt be related to ICI. Recent
C Diff negative pending rest of stool studies. She appears to be improving without any abdominal pain/discomfort and having less diarrhea. Favor continuing empiric IV Zosyn along with IVF and anti-diarrheals with Lomotil as C Diff ruled out. Would
continue ongoing supportive as below along with anti-emetics.
Med review per lexicomp:
herceptin Gastrointestinal: Abdominal pain (22%; upper abdominal pain: 2%), anorexia (14%), diarrhea (7% to 25%), nausea (6% to 33%), vomiting (4% to 23%)
Pertuzumab Gastrointestinal: Abdominal pain (22%; upper abdominal pain: 2%), anorexia (14%), diarrhea (7% to 25%), nausea (6% to 33%), vomiting (4% to 23%)
carboplatin Gastrointestinal: Gastrointestinal pain (17%), nausea (10% to 15%), nausea and vomiting (92%), vomiting (65% to 81%; severe vomitin%)
taxotere Gastrointestinal: Diarrhea (23% to 43%; severe diarrhea: <=%), nausea (34% to 42%; severe nausea: <=%), stomatitis (19% to 53%; grades 3/4: 2%), vomiting (22% to 23%; severe vomiting: <=%)
Recommendations:
- Regular as tolerated
- Continue empiric IV PPI BiD
- Agree with ongoing suppportive care with IVF and anti-emetics
- Favor continuing empiric IV Zosyn given improving symptoms although previous c/f allergy
- Continue standing Lomotil TiD as C Diff r/o
- Can consider RTC Zofran but QTC higher will hold for now continue Tigan as needed
- Favor ongoing monitoring of recurrent dark stools and trend hbg -- support with transfusion as needed -- may be oozing with pancolitis- if persist would hold lovenox
- For now, no plans for any colonoscopy at this time
- Rest of ongoing supportive care as per primary team
GI will continue to follow. Please call with any questions or concerns.
Subjective
Subjective
Date of Service: May 06, 2025
- C Diff (-), stool cultures pending
- Remains on IV Zosyn (05/04- )
- Concern for rash and edema to face/chest, concern for allergic reaction and treated with benadryl/pepcid
- Otherwise, no acute events overnight
Feeling better on antibiotics, having less diarrhea and somewhat semi-formed stools. Denies any nausea/vomiting this AM or other abdominal pain. Feels like she is slowly improving and able to get some sleep last night without ongoing nocturnal
diarrhea. Otherwise, no other fevers/chills or other constitutional symptoms.
Objective
Data Reviewed
Laboratory Data:
Laboratory Results
Magnesium 1.6 mg/dl (1.6-2.3) 05/05/25 07:10
Total Bilirubin 0.6 mg/dl (0.2-1.3) 05/05/25 07:10
AST 25 U/L (14-36) 05/05/25 07:10
ALT 34 U/L (0-35) 05/05/25 07:10
Alkaline Phosphatase 116 U/L (38-126) 05/05/25 07:10
Lipase 55 U/L (23-300) 05/02/25 14:19
Vital Signs and I&O:
Vital Signs
Temp Pulse Resp BP Pulse Ox
99.5 F 73 16 136/72 96
05/05/25 23:56 05/05/25 23:56 05/05/25 23:56 05/05/25 23:56 05/05/25 23:56
I&O
05/04/25 05/05/25 05/06/25
06:59 06:59 06:59
Intake Total 1180 / 1180 1640 / 1640 2540 / 2540
Output Total 3 / 3 200 / 200
Balance 1177 / 1177 1640 / 1640 2340 / 2340
Physical Exam
Physical Exam
HEENT: Anicteric and Moist mucous membranes
Pulmonary: Other (Normal WOB on room air)
GI: Soft, Non Distended and Non Tender
Extremities: No Edema
Neuro: Non Focal
[2025-05-06 06:00] VITALS: BMI 27.9
[2025-05-06] MEDS: MAGIC OR MIRACLE MOUTHWASH PO ×4 (06:37→21:08)
--- NOTE | 2025-05-06 07:28 | W.PN.HOSP.TC ---
Addendum entered and electronically signed by Yadiel Whelan MD 05/06/25 14:51:
Seen and examined by me independently in collaboration with the medical imaging specialist.
Lab data reviewed.
Addendum as below :
Improved GI symptoms. She is not having nausea. Tolerating bit more diet. Decreased frequency and quantity of diarrheal stool. No abdominal pain. Abdomen soft. Continue with empiric antibiotics.
Last night she brought to the attention of nurse practitioner about facial redness.
Patient says she had similar redness last time with her chemotherapy which resolved spontaneously.
She started noticed this for the last 4 to 5 days we did bring to my attention. She says it was difficult noticed because of a mcclendon on her face. She felt it is red, swollen, slightly painful and itchy. It started became more intense last night and
spread to her neck and upwards of the left breast area. She felt her eyes were swollen but no lip swelling or tongue swelling. No trouble with the breathing.
No history of angioedema.
Denies any involvement of other areas of the body. No generalized itching either. No generalized rash.
She has a slight erythema of her face but no maculopapular rash anywhere.
Suspect this more facial erythromelalgia than a rash to IV zosyn .Dont know if any hypersensitivity reaction to her chemo. Will tx with 5 day of Pred 20mg and prn benadryl. Since it intensified last night hold zosyn till there is no rash in other
areas .In mean time tx with ceftriaxone and Flagyl.
DC further IV fluids. Mild lower extremity edema noted. Patient takes as needed Lasix at home which will be reintroduced. Hold further IV fluids as her GI intake is improving.
Original Note:
Today's Communication/Plan
-
- cbc, cmp
-iv fluids stopped
-Ceftriaxone 1gm+ Flagyl 500mg iv started today
- Furosemide 20 mg started
- Benadryl 5 mg PRN if the patient experiences itchiness, swelling.
Assessment / Plan
Assessment / Plan
69-yr old female with k/h/o triple positive breast cancer with B/L mastectomy, Heart block s/p pacemaker presented with nausea,vomiting, diarrhea after receiving second chemotherapy cycle last week.
# Diffuse erythematous Facial rashes:
Improved by prednisone cream.
Now patient is asymptomatic
- Benadryl 5 mg PRN if the patient experiences itchiness, swelling.
# Diarrhea secondary to Upper Gastro intestinal bleeding/ Infection/ Inflammatory colitis:
-Heme stool test positive
-Hemoglobin level= 9 L dropped from
- Stool WBC count are 50.9 (h)
-WBC Count are improved to 50.9 (h) from 52.7 (H)
-C. difficile culture showed negative.
-CT scan of abdomen and pelvis with contrast shows-There is pronounced wall thickening and mesenteric inflammatory change adjacent to the rectum, sigmoid colon, descending colon, transverse colon (pancolitis)
-Piptaz 3.375 g in 50 ml 100 ml/hr IV Q6H on held and switched to Ceftriaxone 1 gm, Flagyl 500 mg IV
( by assuming may be Zosyn might triggered the rashes; but drug induced rashes do have a presentation of macula papular rashes pattern which is not seen in this patient).
-Patient is tolerating her food now, so planning to stop iv fluids.
-Potassium 3.9 after the potassium repletion.
-Patient Zofran was stopped because of the QTc interval around 486 ms, prolongation, and she has latex allergy which has an interaction with prochlorperazine so decided to go with Trimethobenzamide.
- Transfuse blood if Hb less than 7 mg/dl, monitor H&H
-GIT consulted: Pantoprazole 40 mg BID IV started which improved her symptoms. .
# Triple positive Breast Cancer:
-Left breast firm, non tender along with left axillary lymph nodes present with Left axillary lymph nodes biopsy confirming left mammary infiltrative carcinoma.
-Patient is following up with Dr Valera of Oncology at [place]
-She received Herceptin, Perjeta, carboplatin, Taxotere recently.
-Leucocytosis 63.8 h might be due to recent Filgrastim treatment.
# GERD:
- Patient currently taking Pantoprazole 40 mg BID IV dosage.
#Heart Block:
left side below the clavicle pacemaker placed.
the pt is stable.
# Furosemide 2o mg PRN restarted because of non pitting edema.
DVT prophylaxis: none
Anticipated Discharge: 24 - 48 hours
Subjective/Interval History
-
Date of Service: May 06, 2025
-Overnight the patient does concerns for swelling, redness of her face, and she couldn't open her eyes because of the swelling. But after receiving prednisone ointment, and Decadron 4 mg IV she feels better.
Erythromycin 0.5% helped her to remove the eye crust and to open the eyes. patient mentioned this rashes are not relevant to her allergic to medications, antibiotics piptaz she received for the past 3 days. She experienced the similar symptoms when
she went for the 1 st chemotherapy cycle as well.
-Her Left Breast got swollen yesterday which is not associated with pain, restriction of movement, fever, chills. She gave the history that she was diagnosed with left side axillary malignant lymph nodes few months ago and they are going to remove
it after 2nd chemotherapy cycle(which was completed on last week).
-Her nausea, vomiting got improved comparing from yesterday. She had one bowel movement today morning with black stools in a less amount. And she can able to eat cereals, other liquids today.
Objective Data
-
Labs:
Laboratory Results
05/06/25 06:48
05/06/25 06:48
Laboratory Results
Lactic Acid 0.6 mmol/L (0.7-2.0) L 05/05/25 07:09
Total Bilirubin 0.6 mg/dl (0.2-1.3) 05/05/25 07:10
AST 25 U/L (14-36) 05/05/25 07:10
ALT 34 U/L (0-35) 05/05/25 07:10
Alkaline Phosphatase 116 U/L (38-126) 05/05/25 07:10
Lipase 55 U/L (23-300) 05/02/25 14:19
Vital Signs:
Vital Signs
Temp Pulse Resp BP Pulse Ox
99.5 F 73 16 136/72 95
05/05/25 23:56 05/05/25 23:56 05/05/25 23:56 05/05/25 23:56 05/06/25 07:19
I&O
05/05/25 05/06/25 05/07/25
06:59 06:59 06:59
Intake Total 1640 / 1640 2660 / 2660
Output Total 200 / 200
Balance 1640 / 1640 2460 / 2460
Review of Systems
-
History Source: Patient
Constitutional: Reports Weight Loss
Respiratory: Reports No Symptoms
Cardiac: Reports No Symptoms
Abdomen/GI: Reports Vomiting and Diarrhea (1 black stools +)
Breast: Reports Other (left side breast swelling. )
Genitourinary: Reports No Symptoms
Musculoskeletal: Reports No Symptoms
Skin: Reports Rash (reddish face which she noticed 3 dys ago before starting the antibiotic- piptaz, eye redness and discharge which was resolved with azithromycin oinment. )
Neuro: Reports No Symptoms
Endocrine: Reports No Symptoms
Hematologic / Lymphatic: Reports No Symptoms
Allergy / Immunology: Reports No Symptoms
Psych: Reports Depressed
Physical Exam
-
General: No Apparent Distress
Respiratory: Clear to Auscultation
Cardiac: Regular Rhythm, S1/S2 and Other (left side packemaker placement scar present )
Breast: Mass/Lump (left side breast- firm mass, no warmth, non tender, without infiltration. ) and Other (B/L Mastectomy with silicon breast implant. )
GI: Soft, Nontender and Nondistended
Rectal: Black
Genito-urinary: No Costovertebral Tender
Musculoskeletal: Other (b/l lower extremity edema present. non pitting. )
Skin: Rash (reddish rash all over the face from head till above the clavicle presented. )
Neuro: AO x 3
Hematologic / Lymphatic: Lymphadenopathy (Left side axillary Lymph nodes 2 nodes palpable, non tender. )
Psych: Calm
[2025-05-06 07:35] LABS: Blood Urea Nitrogen 4 mg/dl (7-17); Calcium 8.2 mg/dl (8.4-10.2); Carbon Dioxide 22 mmol/L (22-30); Chloride 108 mmol/L (98-107); Estimated Creatinine Clearance 95 ml/min; Glucose 113 mg/dl (70-99); Magnesium 1.7 mg/dl (1.6-2.3); Potassium 3.9 mmol/L (3.5-5.1); Sodium 135 mmol/L (135-145); eGFR > 60.00
[2025-05-06 07:40] VITALS: BP 131/74
[2025-05-06] MEDS: PROTONIX IV 40 MG IV ×2 (08:08→21:07)
[2025-05-06] MEDS: NSS (PRESERVATIVE FREE) 10 ML IV ×2 (08:08→21:07)
[2025-05-06] MEDS: CLARITIN PO (08:15)
[2025-05-06 08:16] LABS: Hematocrit 26.5 % (37.0-47.0); Hemoglobin 9.0 g/dL (12.0-16.0); Mean Corp Hgb Conc. 34.0 g/dL (33.0-37.0); Mean Corpuscular Volume 84.7 fL (81.0-99.0); Platelet Count 148 10^3/uL (130-400); Red Cell Dist. Width 15.0 % (11.5-14.5)
[2025-05-06] MEDS: ZOSYN IV (11:58)
[2025-05-06] MEDS: NSS IV (12:09)
[2025-05-06 15:20] VITALS: BP 125/81
[2025-05-06] MEDS: STERILE WATER FOR INJECTION 10 ML IV (15:34)
[2025-05-06] MEDS: LASIX 20 MG PO (15:34)
[2025-05-06] MEDS: ROCEPHIN 1000 MG IV (15:34)
--- NOTE | 2025-05-06 16:21 | CHAP ---
Lia said she was feeling better today, grateful to have turned a corner. She shared a lot about her journey, her family, her nadine. Emotional and spiritual support provided.
[2025-05-06] MEDS: FLAGYL 500 MG 100 IV ×2 (16:22→23:07)
[2025-05-06] MEDS: LOVENOX SC (19:08)
[2025-05-06] MEDS: AMBIEN 5 MG PO (23:09)
[2025-05-06] MEDS: DESYREL 100 MG PO (23:09)
[2025-05-06 23:40] VITALS: BP 141/73
[2025-05-07] MEDS: LOMOTIL 1 TABLET PO ×3 (04:04→21:44)
--- NOTE | 2025-05-07 05:52 | W.PN.GI.CBS2 ---
Today's Communication / Plan
-
Ongoing improving symptoms with less diarrhea and having more greenish bowel movements as of this AM. No plans for a colonoscopy at this time given her recent chemo and improvement with IV abx further supportive of likely infectious cause. Agree
with ongoing maximal supportive care as below. GI will sign-off, please re-contact with any questions or concerns.
Assessment / Plan
-
#Nausea/Vomiting
#Abdominal Pain #Diarrhea
#Pancolitis on CT Imaging
#Leukocytosis (recent Neulasta)
#Pancytopenia
Impression: Ms Benz is a 69 y.o female with past medical history notable for triple-positive breast cancer (s/p b/l mastectomy, chemo/XRT in 2002) complicated by recurrence on second-round of chemo (last dose on 04/24 on Herceptin, Perjeta,
carboplatin, Taxotere) who presented to the ED on 05/02/25 with nausea/vomiting and bloody diarrhea. Of note, patient notes previous similar symptoms in the past after receiving her first round of chemotherapy but never had symptoms as severe as this
thus causing her to present at the hospital. Labs on admission revealed marked leukocytosis with WBC 63k along with CT imaging demonstrating severe pancolitis likely infectious versus inflammatory. Repeat labs today with WBC 52k, Hgb 9.5 (previously
12s) and plts 178. Etiology of patient's acute, pancolitis seems most consistent acute infectious versus chemo-induced versus immune colitis although seems less likely and in discussion with patient's Oncology team not felt be related to ICI. Recent
C Diff negative pending rest of stool studies. She appears to be improving without any abdominal pain/discomfort and having less diarrhea. Favor continuing empiric IV Zosyn along with IVF and anti-diarrheals with Lomotil as C Diff ruled out. Would
continue ongoing supportive as below along with anti-emetics.
Med review per lexicomp:
herceptin Gastrointestinal: Abdominal pain (22%; upper abdominal pain: 2%), anorexia (14%), diarrhea (7% to 25%), nausea (6% to 33%), vomiting (4% to 23%)
Pertuzumab Gastrointestinal: Abdominal pain (22%; upper abdominal pain: 2%), anorexia (14%), diarrhea (7% to 25%), nausea (6% to 33%), vomiting (4% to 23%)
carboplatin Gastrointestinal: Gastrointestinal pain (17%), nausea (10% to 15%), nausea and vomiting (92%), vomiting (65% to 81%; severe vomitin%)
taxotere Gastrointestinal: Diarrhea (23% to 43%; severe diarrhea: <=%), nausea (34% to 42%; severe nausea: <=%), stomatitis (19% to 53%; grades 3/4: 2%), vomiting (22% to 23%; severe vomiting: <=%)
Recommendations:
- Regular, lactose-free, low-fiber, low-residue diet as tolerated
- Continue empiric IV PPI BiD
- Agree with ongoing suppportive care with IVF and anti-emetics
- Favor continuing empiric IV abx given improving symptoms and may transition to oral near discharge for empiric 10 day course
- Continue standing Lomotil TiD as C Diff r/o
- Can consider RTC Zofran but QTC higher will hold for now continue Tigan as needed
- Favor ongoing monitoring of recurrent dark stools and trend hbg -- support with transfusion as needed -- may be oozing with pancolitis- if persist would hold lovenox
- For now, no plans for any colonoscopy at this time given her recent chemo/immunocompromised along with ongoing improving symptoms
- Rest of ongoing supportive care as per primary team
Discussed with primary internal medicine team. GI will sign-off given her ongoing improving symptoms. Please re-contact with any questions or concerns.
Subjective
Subjective
Date of Service: May 07, 2025
- No acute events overnight, still with reported dark stools
- Hgb remains stable with Hgb 9.5 -> 9.0 -> 9.5 this AM
- Stool cultures (-)
Feeling much improved with IV abx, having more semi-formed stools and black stools lessening, now green stools in toilet. No other abdominal pain or discomfort and denies any further nausea/vomiting.
Objective
Data Reviewed
Laboratory Data:
Laboratory Results
Magnesium 1.7 mg/dl (1.6-2.3) 05/06/25 06:48
Total Bilirubin 0.6 mg/dl (0.2-1.3) 05/05/25 07:10
AST 25 U/L (14-36) 05/05/25 07:10
ALT 34 U/L (0-35) 05/05/25 07:10
Alkaline Phosphatase 116 U/L (38-126) 05/05/25 07:10
Lipase 55 U/L (23-300) 05/02/25 14:19
Vital Signs and I&O:
Vital Signs
Temp Pulse Resp BP Pulse Ox
97.9 F 75 18 141/73 99
05/06/25 23:40 05/06/25 23:40 05/06/25 23:40 05/06/25 23:40 05/06/25 23:40
I&O
05/05/25 05/06/25 05/07/25
06:59 06:59 06:59
Intake Total 1640 / 1640 2660 / 2660 1370 / 1370
Output Total 200 / 200
Balance 1640 / 1640 2460 / 2460 1370 / 1370
Physical Exam
Physical Exam
HEENT: Anicteric and Moist mucous membranes
Pulmonary: Other (Normal WOB on room air)
GI: Soft, Non Distended and Non Tender
Extremities: No Edema
Neuro: Non Focal
[2025-05-07 06:00] VITALS: BMI 27.6
[2025-05-07] MEDS: MAGIC OR MIRACLE MOUTHWASH PO ×4 (06:32→21:28)
[2025-05-07 07:45] VITALS: BP 144/76
[2025-05-07 07:45] LABS: Hematocrit 29.1 % (37.0-47.0); Hemoglobin 9.7 g/dL (12.0-16.0); Mean Corp Hgb Conc. 33.3 g/dL (33.0-37.0); Mean Corpuscular Volume 86.1 fL (81.0-99.0); Platelet Count 158 10^3/uL (130-400); Red Cell Dist. Width 15.3 % (11.5-14.5)
[2025-05-07 07:49] LABS: ALT (SGPT) 30 U/L (0-35); AST (SGOT) 29 U/L (14-36); Albumin 3.3 g/dl (3.5-5.0); Alkaline Phosphatase 123 U/L (38-126); Blood Urea Nitrogen 3 mg/dl (7-17); Calcium 8.1 mg/dl (8.4-10.2); Carbon Dioxide 28 mmol/L (22-30); Chloride 104 mmol/L (98-107); Estimated Creatinine Clearance 81 ml/min; Glucose 74 mg/dl (70-99); Potassium 3.0 mmol/L (3.5-5.1); Sodium 138 mmol/L (135-145); Total Protein 5.2 g/dl (6.3-8.2); eGFR > 60.00
[2025-05-07] MEDS: PROTONIX IV 40 MG IV ×2 (07:51→21:45)
[2025-05-07] MEDS: NSS (PRESERVATIVE FREE) 10 ML IV ×2 (07:51→21:45)
--- NOTE | 2025-05-07 07:51 | W.PN.HOSP.TC ---
Addendum entered and electronically signed by Yadiel Whelan MD 05/07/25 11:44:
This is an addendum to family practice resident note.
Seen and examined by me independently in collaboration with the anesthesiology medical doctor.
Lab data reviewed.
Addendum as below :
Improving GI symptoms from his colitis. No nausea vomiting. Tolerating diet. No abdominal pain. Abdomen is soft. Improving stool frequency and quantity.
Continue with empirical antibiotics. Will treat with 10 days course of antibiotics. Appreciate GI input.
She is not allergic to Zosyn her reaction to the face was looking more like erythromelagia . Both subjective and objectively the redness at the face is much improved. Finished a 5-day course of antibiotics and. Benadryl. Patient was advised to
bring this up to the treating oncology team as this could be a side effect profile to her chemo agents.
No skin rash noted.
Patient want to see how she does today with her GI symptoms as she lives alone. Will review again in a.m.-if continued improvements we will discharge her home.
Original Note:
Today's Communication/Plan
-
order placed for cbc, cmp,
repeat pottasium level , replenish potassium if less than 3.4
Follow up with lab magneisum order
Patient tomorrow will be on DAY- 3 of Ceftriaxone, Flagyl antibiotics.
Assessment / Plan
Assessment / Plan
69-yr old female with k/h/o triple positive breast cancer with B/L mastectomy, Heart block s/p pacemaker presented with nausea,vomiting, diarrhea after receiving second chemotherapy cycle last week.
# Diffuse erythematous Facial rash:
Improved by prednisone cream.
Now patient is asymptomatic
- Benadryl 5 mg PRN if the patient experiences itchiness, swelling.
- Prednisone 20 mg for 5 days prescribed (Day 2) for the facial swelling.
# Diarrhea secondary to Upper Gastro intestinal bleeding/ Infection/ Inflammatory colitis:
-Heme stool test positive
-Hemoglobin level= 9.7L improved when comparing from yesterday.
-Stool WBC count are 50.9 (h)
-C. difficile culture, stool culture results showed negative.
-WBC Count = 39.9 within normal range comparing from 50.9 (h) yesterday.
-CT scan of abdomen and pelvis with contrast shows-There is pronounced wall thickening and mesenteric inflammatory change adjacent to the rectum, sigmoid colon, descending colon, transverse colon (pancolitis)
- Ceftriaxone 1 gm, Flagyl 500 mg IV patient is receiving for pancolitis ( DAY-2).
( by assuming may be Zosyn might triggered the rashes; but drug induced rashes do have a presentation of macula papular rashes pattern which is not seen in this patient).
-Patient is tolerating her food now, and she is willing to take KCl per oral today.
-Potassium 3.0L, KCL 60 mEq PO was given today morning by splitting the dosage (KCL 20+40 meq depending on the toleran ceof the patient. ( Replenish depending on the potassium level tomorrow)
-Patient Zofran was stopped because of the QTc interval around 486 ms, prolongation, and she has latex allergy which has an interaction with prochlorperazine so decided to go with Trimethobenzamide.
-Transfuse blood if Hb less than 7 mg/dl, monitor H&H
-GIT consulted: Pantoprazole 40 mg BID IV started which improved her symptoms.
# Triple positive Breast Cancer:
-Left breast firm, non tender along with left axillary lymph nodes present with Left axillary lymph nodes biopsy confirming left mammary infiltrative carcinoma.
-Patient is following up with Dr Valera of Oncology at [place]
-She received Herceptin, Perjeta, carboplatin, Taxotere 10 days before as her 2 nd chemotherapy cycle .
-Leucocytosis 63.8 h on admission might be due to recent Filgrastim treatment, however the given CT scan reports of pancolitis has a .
# GERD:
- Patient currently taking Pantoprazole 40 mg BID IV dosage.
#Heart Block:
left side below the clavicle pacemaker placed.
the pt is stable.
# Swelling of the lower limb:
Furosemide 20 mg restarted because of non pitting edema.
Blood pressure 144/76 mmHg today, patient is having dry cough but absence of b/l lower lobe crackles on auscultation.
DVT prophylaxis: Lovenax 40 mg SC
Disposition: home
Anticipated Discharge: 24 - 48 hours
Subjective/Interval History
-
Date of Service: May 07, 2025
Overnight patient is experiencing dry cough which is intermittent in nature, with no aggravating factor, and relieved with Benadryl. Not associated with chest pain, palpitation. (her blood pressure is in 144/76.)
- Her redness of the face is improved comparing with yesterday, which is relieving by Benadryl, prednisone ointment.
- She has a leg swelling but improved with Furosemide 20 mg comparing from yesterday.
- She had 3 episodes of loose stools green in color today morning, which is not associated with vomiting, abdominal pain, dizziness.
Objective Data
-
Labs:
Laboratory Results
05/07/25 06:40
05/07/25 06:40
Laboratory Results
Lactic Acid 0.6 mmol/L (0.7-2.0) L 05/05/25 07:09
Total Bilirubin 0.4 mg/dl (0.2-1.3) 05/07/25 06:40
AST 29 U/L (14-36) 05/07/25 06:40
ALT 30 U/L (0-35) 05/07/25 06:40
Alkaline Phosphatase 123 U/L (38-126) 05/07/25 06:40
Lipase 55 U/L (23-300) 05/02/25 14:19
05/07/25
06:40
WBC 39.9 H
Hgb 9.7 L
Hct 29.1 L
Plt Count 158
Sodium 138
Potassium 3.0 L
Chloride 104
Carbon Dioxide 28
BUN 3 L
Creatinine 0.7
Glucose 74
Calcium 8.1 L
Total Bilirubin 0.4
AST 29
ALT 30
Alkaline Phosphatase 123
Vital Signs:
Vital Signs
Temp Pulse Resp BP Pulse Ox
97.7 F 97 18 144/76 100
05/07/25 07:45 05/07/25 07:45 05/07/25 07:45 05/07/25 07:45 05/07/25 07:45
I&O
05/06/25 05/07/25 05/08/25
06:59 06:59 06:59
Intake Total 2660 / 2660 1850 / 1850
Output Total 200 / 200
Balance 2460 / 2460 1850 / 1850
Review of Systems
-
History Source: Patient
All other systems: Reviewed and negative
Constitutional: Reports No Symptoms
EENT: Reports No Symptoms Reported
Respiratory: Reports No Symptoms
Cardiac: Reports No Symptoms
Abdomen/GI: Reports Diarrhea (green stools )
Breast: Reports Other (left side breast swelling present. )
Genitourinary: Reports No Symptoms
Musculoskeletal: Reports No Symptoms
Skin: Reports Rash (face redness which is improved with prednisone 20 mg )
Neuro: Reports No Symptoms
Endocrine: Reports No Symptoms
Hematologic / Lymphatic: Reports No Symptoms
Allergy / Immunology: Reports No Symptoms
Physical Exam
-
General: No Apparent Distress
HEENT: Moist Mucous Membranes
Respiratory: Clear to Auscultation
Cardiac: Regular Rhythm and S1/S2
GI: Soft, Nontender and Nondistended
Rectal: Other (green stools. )
Genito-urinary: No Costovertebral Tender
Skin: Warm and Rash (diffuse, non raised, reddish, warmth in touch, non tender, with clear demarcation, until below the clavicle. )
Neuro: AO x 3
Hematologic / Lymphatic: Lymphadenopathy (left axillary lymph nodes palpable. )
Psych: Calm
[2025-05-07] MEDS: ERYTHROMYCIN 0.5% OPHTHALMIC OINTMENT 1 APPLIC OPHTH ×4 (07:52→21:45)
[2025-05-07] MEDS: CLARITIN 10 MG PO (07:52)
[2025-05-07] MEDS: FLAGYL 500 MG 100 IV ×3 (07:52→23:13)
[2025-05-07] MEDS: LASIX 20 MG PO (07:55)
[2025-05-07] MEDS: BENADRYL 25 MG IV ×2 (08:10→21:46)
[2025-05-07] MEDS: KCL 40 MEQ PO (08:10)
[2025-05-07] MEDS: DELTASONE 20 MG PO (08:25)
[2025-05-07 08:44] LABS: Nucleated Red Blood Cells % 0.1 %
[2025-05-07] MEDS: KCL 20 MEQ PO (11:10)
[2025-05-07] MEDS: STERILE WATER FOR INJECTION 10 ML IV (13:17)
[2025-05-07] MEDS: ROCEPHIN 1000 MG IV (13:18)
[2025-05-07 15:45] VITALS: BP 125/75
[2025-05-07] MEDS: LOVENOX SC (17:04)
[2025-05-07] MEDS: AMBIEN 10 MG PO (21:44)
[2025-05-07] MEDS: DESYREL 100 MG PO (21:44)
[2025-05-07 23:09] VITALS: BP 128/79
[2025-05-08] MEDS: LOMOTIL PO (03:22)
[2025-05-08 06:00] VITALS: BMI 27.4
--- NOTE | 2025-05-08 07:11 | W.PN.HOSP.TC ---
Addendum entered and electronically signed by Steven Tovar MD 05/09/25 13:23:
Presented with acute onset diarrhea associated with bloody bowel movements. CT demonstrating pancolitis. C. difficile was negative. Salmonella Campylobacter negative. E. coli Shigella toxin pending. Stool for WBC many white blood cells seen.
Started on IV antibiotics with improvement in white count and symptomatology. Evaluated by gastroenterology who did not believe immediate colonoscopy is required did recommend in the near future though. Additionally, recently started on new
chemotherapeutic treatment plan for triple positive breast cancer. Per gastroenterology all these agents can cause diarrhea.
Hypokalemia 2.7
-Give 40meq of IV K x 3doses
-Repeat BMP at 8pm, replete if needed ideally with IV as oral can worsen diarrhea
Original Note:
Today's Communication/Plan
-
- Replete K+ with 40 mEq KCl IV, 3x over the next 12 hours
- Replete Mg2+
- Trend BMP following completion of final KCl dose
- Continue ceftriaxone and metronidazole for pancolitis
- Lomotil one time dose for diarrhea
Assessment / Plan
Assessment / Plan
69-yr old female with k/h/o triple positive breast cancer with B/L mastectomy, Heart block s/p pacemaker presented with nausea,vomiting, diarrhea after receiving second chemotherapy cycle last week.
# Hypokalemia
K+ 2.7
- 40 mEq KCl IV 3x over the next 12 hours
- Replete Mg2+ magnesium oxide 500mg PO
- f/u BMP after third dose of IV KCl
# Diarrhea secondary to Upper Gastro intestinal bleeding/ Infection/ Inflammatory colitis:
-Heme stool test positive
-Hemoglobin level= 10.3 improved when comparing from yesterday.
-WBC count 37.3, down from 39.9 prior
-Stool WBC count are 50.9 (h)
-C. difficile culture, stool culture results showed negative.
-CT scan of abdomen and pelvis with contrast shows-There is pronounced wall thickening and mesenteric inflammatory change adjacent to the rectum, sigmoid colon, descending colon, transverse colon (pancolitis)
- Ceftriaxone 1 gm, Flagyl 500 mg IV patient is receiving for pancolitis ( DAY-3).
( by assuming may be Zosyn might triggered the rashes; but drug induced rashes do have a presentation of macula papular rashes pattern which is not seen in this patient).
-Patient is tolerating her food now, and she is willing to take KCl per oral today.
-Potassium 3.0L, KCL 60 mEq PO was given today morning by splitting the dosage (KCL 20+40 meq depending on the toleran ceof the patient. ( Replenish depending on the potassium level tomorrow)
-Patient Zofran was stopped because of the QTc interval around 486 ms, prolongation, and she has latex allergy which has an interaction with prochlorperazine so decided to go with Trimethobenzamide.
-Transfuse blood if Hb less than 7 mg/dl, monitor H&H
-GIT consulted: Pantoprazole 40 mg BID IV started which improved her symptoms.
- Patient requested lomotil, prescribed 1 tablet once
# Diffuse erythematous Facial rash:
Improved by prednisone cream, almost resolved
Now patient is asymptomatic
- Benadryl 5 mg PRN if the patient experiences itchiness, swelling.
- Prednisone 20 mg for 5 days prescribed (Day 3) for the facial swelling.
# Triple positive Breast Cancer:
-Left breast firm, non tender along with left axillary lymph nodes present with Left axillary lymph nodes biopsy confirming left mammary infiltrative carcinoma.
-Patient is following up with Dr Valera of Oncology at [place]
-She received Herceptin, Perjeta, carboplatin, Taxotere 10 days before as her 2 nd chemotherapy cycle .
-Leucocytosis 63.8 h on admission might be due to recent Filgrastim treatment, however the given CT scan reports of pancolitis has an alternative explanation to leukocytosis.
# GERD:
- Patient currently taking Pantoprazole 40 mg BID IV dosage.
#Heart Block:
left side below the clavicle pacemaker placed.
the pt is stable.
# Swelling of the lower limb:
Furosemide 20 mg restarted because of non pitting edema.
Blood pressure 130s/70s mmHg today, patient is having dry cough but absence of b/l lower lobe crackles on auscultation.
DVT prophylaxis: Lovenax 40 mg SC
Disposition: home
Anticipated Discharge: 24 - 48 hours
Subjective/Interval History
-
Date of Service: May 08, 2025
This AM, patient is feeling better, less nausea/vomiting, improving diarrhea. She reports that her facial rash is improved from prior days.
Objective Data
-
Labs:
Laboratory Results
05/08/25
06:00
WBC Pending
Hgb Pending
Hct Pending
Plt Count Pending
Sodium Pending
Potassium Pending
Chloride Pending
Carbon Dioxide Pending
BUN Pending
Creatinine Pending
Glucose Pending
Calcium Pending
Total Bilirubin Pending
AST Pending
ALT Pending
Alkaline Phosphatase Pending
WBC 37.3
Hgb 10.3
Plt 159
K+ 2.7
Mg 1.3
Vital Signs:
Vital Signs
Temp Pulse Resp BP Pulse Ox
98.2 F 79 18 128/79 99
05/07/25 23:09 05/07/25 23:09 05/07/25 23:09 05/07/25 23:09 05/07/25 23:09
I&O
05/07/25 05/08/25 05/09/25
06:59 06:59 06:59
Intake Total 1849 840 / 840
Balance 1849 840 / 840
Physical Exam
-
General: Comfortable
HEENT: Normocephalic and Other (facial rash appears improved from prior)
Respiratory: Clear to Auscultation
Cardiac: Regular Rhythm and Murmur (no murmurs on my exam)
GI: Soft, Nontender and Nondistended
Musculoskeletal: Other (1+ edema on lower extremities bilaterally)
Skin: Warm and Dry
Neuro: Awake and Alert
Psych: Calm
[2025-05-08 07:54] VITALS: BP 124/66
[2025-05-08 08:09] LABS: Hematocrit 30.6 % (37.0-47.0); Hemoglobin 10.3 g/dL (12.0-16.0); Mean Corp Hgb Conc. 33.7 g/dL (33.0-37.0); Mean Corpuscular Volume 84.1 fL (81.0-99.0); Platelet Count 159 10^3/uL (130-400); Red Cell Dist. Width 15.1 % (11.5-14.5)
[2025-05-08] MEDS: MAGIC OR MIRACLE MOUTHWASH PO ×4 (08:49→21:47)
[2025-05-08] MEDS: DELTASONE 20 MG PO (08:49)
[2025-05-08] MEDS: LASIX 20 MG PO (08:49)
[2025-05-08] MEDS: CLARITIN 10 MG PO (08:49)
[2025-05-08] MEDS: FLAGYL 500 MG 100 IV ×2 (08:50→15:42)
[2025-05-08] MEDS: NSS (PRESERVATIVE FREE) 10 ML IV ×2 (08:50→20:54)
[2025-05-08] MEDS: PROTONIX IV 40 MG IV ×2 (08:51→20:58)
[2025-05-08 08:58] LABS: ALT (SGPT) 29 U/L (0-35); AST (SGOT) 29 U/L (14-36); Albumin 3.7 g/dl (3.5-5.0); Alkaline Phosphatase 118 U/L (38-126); Blood Urea Nitrogen 5 mg/dl (7-17); Calcium 8.6 mg/dl (8.4-10.2); Carbon Dioxide 29 mmol/L (22-30); Chloride 101 mmol/L (98-107); Estimated Creatinine Clearance 72 ml/min; Glucose 75 mg/dl (70-99); Magnesium 1.3 mg/dl (1.6-2.3); Potassium 2.7 mmol/L (3.5-5.1); Sodium 136 mmol/L (135-145); Total Protein 5.7 g/dl (6.3-8.2); eGFR > 60.00
[2025-05-08] MEDS: ERYTHROMYCIN 0.5% OPHTHALMIC OINTMENT 1 APPLIC OPHTH ×4 (09:09→21:05)
[2025-05-08] MEDS: LOMOTIL 1 TABLET PO ×2 (09:28→20:55)
[2025-05-08] MEDS: MAGNESIUM OXIDE 500 MG PO (09:56)
[2025-05-08] MEDS: KCL 270 MEQ IV ×2 (10:20→18:28)
[2025-05-08] MEDS: BENADRYL 25 MG IV (10:31)
[2025-05-08 10:56] LABS: Nucleated Red Blood Cells % 0.1 %
[2025-05-08 11:23] VITALS: BP 136/73
[2025-05-08] MEDS: STERILE WATER FOR INJECTION 10 ML IV (14:03)
[2025-05-08] MEDS: ROCEPHIN 1000 MG IV (14:04)
[2025-05-08 15:50] VITALS: BP 122/72
--- NOTE | 2025-05-08 16:09 | CM ---
Reviewed the chart notes and spoke with the patient at the bedside. Patient ambulating in room ad fernando. Ceftriaxone and metronidazole continues for pancolitis. CM continues to be available to patient/family and is monitoring medical plan for needs
at discharge.
Plan: Discharge to home with resumption of [facility]. Patient receives IV NSS twice weekly.
[2025-05-08] MEDS: LOVENOX SC (18:11)
--- NOTE | 2025-05-08 18:12 | PTCARENOTE ---
Hung patient's 4pm Flagyl first before potassium as flagyl takes one hour, and IV potassium takes 4 hours, and patient with only 1 IV site. Patient rang several minutes later as IV site was leaking. Messaged IV team to change IV. Re-started Flagyl
once new site in. Will hang potassium once Flagyl is complete.
[2025-05-08 19:34] VITALS: BP 126/74
[2025-05-08] MEDS: AMBIEN 10 MG PO (21:04)
[2025-05-08] MEDS: DESYREL 100 MG PO (21:05)
[2025-05-08 23:41] VITALS: BP 153/93
[2025-05-08] MEDS: FLAGYL 500 MG IV (23:47)
[2025-05-09 03:27] VITALS: BP 125/69
[2025-05-09] MEDS: LOMOTIL 1 TABLET PO ×3 (05:19→19:58)
[2025-05-09 06:00] VITALS: BMI 27.3
[2025-05-09 07:01] VITALS: BP 126/76
--- NOTE | 2025-05-09 07:04 | W.PN.HOSP.TC ---
Addendum entered and electronically signed by Steven Tovar MD 05/10/25 13:48:
dc home
repeat bmp/cbc as an outpatient with pcp
Original Note:
Today's Communication/Plan
-
- Replete K+ IV 40 mEq, twice today
- Replete Mg2+ sulfate IV 4g
- Continue ceftriaxone, flagyl, pantoprazole, lomotil
Assessment / Plan
Assessment / Plan
69-yr old female with k/h/o triple positive breast cancer with B/L mastectomy, Heart block s/p pacemaker presented with nausea,vomiting, diarrhea after receiving second chemotherapy cycle last week.
# Hypokalemia/Hypomagnesemia
K+ 3.2
Mg2+ 1.3
perhaps GI pancolitis/diarrhea --> unable to absorb PO well and patient does not want PO
- Replete K+ IV 40 mEq, twice today
- replete Mg2+ sulfate IV 4g
# Diarrhea suspected secondary to Upper Gastro intestinal pancolitis and/or reaction to chemotherapy
-WBC count 31.0 down from 37.3
-C. difficile culture, stool culture results showed negative.
-Continue Ceftriaxone 1 gm, Flagyl 500 mg IV patient is receiving for pancolitis (DAY-4).
-Hemoglobin level= 10.0 stable from yesterday
-Transfuse blood if Hb less than 7 mg/dl, monitor H&H
-Continue Pantoprazole 40 mg BID IV started which improved her symptoms.
- Continue lomotil 1 tablet q8h
# Diffuse erythematous Facial rash (resolved)
patient is asymptomatic, will finish the 5 day course of prednisone
- Benadryl 5 mg PRN if the patient experiences itchiness, swelling.
- Prednisone 20 mg for 5 days prescribed (Day 4/5) for the facial swelling.
# Triple positive Breast Cancer:
-Patient is following up with Dr Valera of Oncology at [facility]
-She received Herceptin, Perjeta, carboplatin, Taxotere 10 days before as her 2nd chemotherapy cycle . Next chemotherapy cycle is May 15.
# Anemia - unclear etiology
- Hemoglobin has been low, could be anemia of chronic disease due to malignancy
- No signs of blood loss during the admission
# Swelling of the lower limb:
- Furosemide 20 mg restarted because of non pitting edema.
- Blood pressure 120s/70s mmHg today
#Chronic issues as below
# Moderate Malnutrition
- As per RD note, given history of breast cancer and chemotherapy, the patient is likely moderately malnourished
# GERD:
- Patient currently taking Pantoprazole 40 mg BID IV dosage.
#Heart Block:
left side below the clavicle pacemaker placed.
the pt is stable.
DVT prophylaxis: Lovenax 40 mg SC
Disposition: home (likely discharge home tomorrow, 05/10/2025)
Code Status: Full
Anticipated Discharge: Within 24 hours
Subjective/Interval History
-
Date of Service: May 09, 2025
This morning, patient is feeling okay, less nausea, no vomiting, improved diarrhea. However, she could not tolerate the third dose of IV KCl, hence she refused the midnight blood draw. She also mentioned she strongly would prefer no PO meds.
She otherwise denies chest pain, dyspnea, abdominal pain. She is scheduled to receive her next chemotherapy session on May 15.
Objective Data
-
Labs:
Laboratory Results
05/09/25 05/09/25
00:00 06:47
WBC Pending
Hgb Pending
Hct Pending
Plt Count Pending
Sodium Cancelled
Potassium Cancelled
Chloride Cancelled
Carbon Dioxide Cancelled
BUN Cancelled
Creatinine Cancelled
Glucose Cancelled
Calcium Cancelled
WBC 31.0
Hgb 10.0
Plt 162
K+ 3.2
Na+ 137
Cr 0.6
Magnesium 1.3
Vital Signs:
Vital Signs
Temp Pulse Resp BP Pulse Ox
98.2 F 87 18 125/69 98
05/09/25 03:27 05/09/25 03:27 05/09/25 03:27 05/09/25 03:27 05/09/25 03:27
I&O
05/08/25 05/09/25 05/10/25
06:59 06:59 06:59
Intake Total 840 / 840 660 / 660
Balance 840 / 840 660 / 660
Review of Systems
-
History Source: Patient
EENT: Reports No Symptoms Reported
Respiratory: Reports No Symptoms
Cardiac: Reports No Symptoms
Abdomen/GI: Reports Other (improved nausea, no vomiting, some diarrhea but improving)
Musculoskeletal: Reports Other (lower extremity swelling)
Skin: Reports Other (facial rash is better)
Neuro: Reports No Symptoms
Physical Exam
-
General: No Apparent Distress
HEENT: Normocephalic and Atraumatic
Respiratory: Clear to Auscultation
Cardiac: Regular Rhythm and Other (no murmurs on my exam)
GI: Nontender
Musculoskeletal: Other (1+ lower extremity edema)
Skin: Warm and Dry
Neuro: Awake and Alert
Psych: Calm
[2025-05-09 07:40] LABS: Hematocrit 29.7 % (37.0-47.0); Hemoglobin 10.0 g/dL (12.0-16.0); Mean Corp Hgb Conc. 33.7 g/dL (33.0-37.0); Mean Corpuscular Volume 84.4 fL (81.0-99.0); Platelet Count 162 10^3/uL (130-400); Red Cell Dist. Width 15.5 % (11.5-14.5)
[2025-05-09 07:43] LABS: Magnesium 1.3 mg/dl (1.6-2.3)
[2025-05-09] MEDS: FLAGYL 500 MG 100 IV ×2 (07:59→18:00)
[2025-05-09] MEDS: CLARITIN 10 MG PO (07:59)
[2025-05-09] MEDS: DELTASONE 20 MG PO (07:59)
[2025-05-09] MEDS: LASIX 20 MG PO (08:00)
[2025-05-09] MEDS: ERYTHROMYCIN 0.5% OPHTHALMIC OINTMENT 1 APPLIC OPHTH ×3 (08:01→18:00)
[2025-05-09] MEDS: NSS (PRESERVATIVE FREE) 10 ML IV ×2 (08:02→19:58)
[2025-05-09] MEDS: PROTONIX IV 40 MG IV ×2 (08:02→19:59)
[2025-05-09 08:47] LABS: Blood Urea Nitrogen 5 mg/dl (7-17); Calcium 8.4 mg/dl (8.4-10.2); Carbon Dioxide 26 mmol/L (22-30); Chloride 103 mmol/L (98-107); Estimated Creatinine Clearance 84 ml/min; Glucose 83 mg/dl (70-99); Potassium 3.2 mmol/L (3.5-5.1); Sodium 137 mmol/L (135-145); eGFR > 60.00
[2025-05-09 08:57] LABS: Absolute Neutrophils -Man Diff 23.2 10^3/uL (1.4-6.5); Platelets Checked Yes
[2025-05-09 08:58] LABS: Anisocytosis 1+; Hypochromasia 1+; Normal RBC Morphology No; Ovalocytes FEW; Polychromasia 1+; Total Cells Counted 100
[2025-05-09] MEDS: MAGIC OR MIRACLE MOUTHWASH PO ×4 (09:01→23:16)
[2025-05-09] MEDS: KCL 270 MEQ IV ×2 (09:25→19:02)
--- NOTE | 2025-05-09 11:01 | PN.CDI ---
CDI
- -
CDI:
Physician Documentation Request
Admit Date: 05/02/25 19:47
Dear Doctor César,
05/05 RD notes states 'Due to weight loss and poor PO intakes <75% estimated energy requirement for greater than or equal to 1 month, pt meeting criteria for moderate protein-calorie malnutrition (ASPEN/AND guidelines, chronic illness).'
Based on the above information and your assessment, which of the following most accurately represents the patient's nutritional status?
Moderate Malnutrition
Other (please specify)
[place] Criteria ([facility] Hospitalist 2017)
2 or more criteria must be present for either
non severe or severe malnutrition
Note that the criteria differs related to the
presence of an acute or chronic illness
Acute Illness Chronic Illness
Energy Intake Non Severe: <75% for >7 days Non Severe: <75% for >1 month
Severe: <50% for >5 days Severe: <75% for >1 month
Weight Loss Non Severe: 1-2% over 1 week Non Severe: 5% over 1 month
5% over 1 month 7.5% over 3 months
7.5% over 3 months 10% over 6 months
1 year N/A 20% over 1 year
Severe: >2% over 1 week Severe: >5% over 1 month
>5% over 1 month >7.5% over 3 months
>7.5% over 3 months >10% over 6 months
1 year N/A >20% over 1 year
Body Fat Non Severe: Mild Decrease Non Severe: Mild Loss
Severe: Moderate Decrease Severe: Severe Loss
Muscle Mass Non Severe: Mild Decrease Non Severe: Mild Loss
Severe: Moderate Decrease Severe: Severe Loss
Fluid Accumulation Non Severe: Mild Accumulation Non Severe: Mild Accumulation
Severe: Moderate to severe Severe: Moderate to severe
accumulation accumulation
Reduced Psychological Operations Strength Non Severe: N/A Non Severe: N/A
Severe: Measurably reduced Severe: Measurably reduced
Use of terms such as suspected, likely, concern for, or probable (associated with a specific diagnosis that is being evaluated, monitored, or treated as if it exists) are acceptable and can be coded in the inpatient setting, when documented at the
time of discharge.
Thank you,
Elena Funk RN, BSN
CDI Specialist
tiger text
Please use your independent medical judgment in providing your response.
--- NOTE | 2025-05-09 11:14 | PN.CDI ---
CDI
- -
CDI:
Physician Documentation Request
Admit Date: 05/02/25 19:47
Dear Doctor César,
Patient is admitted with diarrhea secondary to Upper Gastro intestinal bleeding/ Infection/ Inflammatory colitis.
Heme stool test positive.
H/H results:
Laboratory Tests
05/02/25 05/03/25 05/04/25
14:19 06:54 06:50
Hgb 12.8 11.4 L 10.3 L
Hct 37.3 33.9 L 30.8 L
05/05/25 05/06/25 05/07/25
07:10 06:48 06:40
Hgb 9.5 L 9.0 L 9.7 L
Hct 27.6 L 26.5 L 29.1 L
05/08/25 05/09/25
07:33 06:47
Hgb 10.3 L 10.0 L
Hct 30.6 L 29.7 L
Could you please provide a diagnosis that supports the above lab abnormalities and additional evaluation/ monitoring:
Acute blood loss anemia
Anemia - please specify type
Abnormal lab values clinically insignificant
Other
Use of terms such as suspected, likely, concern for, or probable (associated with a specific diagnosis that is being evaluated, monitored, or treated as if it exists) are acceptable and can be coded in the inpatient setting, when documented at the
time of discharge.
Thank you,
Elena Funk RN, BSN
CDI Specialist
tiger text
Please use your independent medical judgment in providing your response.
[2025-05-09 11:37] VITALS: BP 138/72
[2025-05-09] MEDS: MAGNESIUM SULFATE 100 IV (13:50)
[2025-05-09] MEDS: STERILE WATER FOR INJECTION 10 ML IV (14:37)
[2025-05-09] MEDS: ROCEPHIN 1000 MG IV (14:37)
--- NOTE | 2025-05-09 15:08 | CM ---
Reviewed the chart notes and spoke with the patient at the bedside. IMM reviewed. CM continues to be available to patient/family and is monitoring medical plan for needs at discharge.
Plan: Discharge to home with resumption of [facility].
[2025-05-09 15:28] VITALS: BP 118/79
[2025-05-09] MEDS: LOVENOX SC (18:01)
[2025-05-09] MEDS: TYLENOL 650 MG PO (18:18)
[2025-05-09 19:22] VITALS: BP 125/72
[2025-05-09] MEDS: DESYREL 100 MG PO (23:16)
[2025-05-09] MEDS: AMBIEN 10 MG PO (23:16)
[2025-05-09] MEDS: FLAGYL 500 MG IV (23:17)
[2025-05-09] MEDS: ERYTHROMYCIN 0.5% OPHTHALMIC OINTMENT OPHTH (23:23)
[2025-05-09 23:44] VITALS: BP 121/85
[2025-05-10] MEDS: LOMOTIL 1 TABLET PO ×2 (03:01→11:37)
[2025-05-10 03:16] VITALS: BP 140/74
[2025-05-10 05:26] VITALS: BMI 27.5
--- NOTE | 2025-05-10 07:03 | W.PN.HOSP.TC ---
Addendum entered and electronically signed by Steven Tovar MD 05/11/25 15:58:
DC home
Hypokalemia resolved
No further diarrhea
Complete total 10 days of antibiotics orally
Original Note:
Today's Communication/Plan
-
discharge
- transition to PO meds/antibiotics
Assessment / Plan
Assessment / Plan
69-yr old female with k/h/o triple positive breast cancer with B/L mastectomy, Heart block s/p pacemaker presented with nausea,vomiting, diarrhea after receiving second chemotherapy cycle last week.
# Diarrhea suspected secondary to Upper Gastro intestinal pancolitis and/or reaction to chemotherapy
- Transition to PO meds as follows
- Cefdinir 300mg bid PO for 5 days
- Metronidazole 500mg tid PO for 5 days
- Pantoprazole 40mg PO bid for two weeks and then down to 20mg qhs
# Hypokalemia/Hypomagnesemia (resolved)
K+ 4.5
Mg2+ 2.3
- electrolyte abnormalities have resolved
# Diffuse erythematous Facial rash (resolved)
patient is asymptomatic, she completed 5 day course of prednisone
# Triple positive Breast Cancer:
-Patient is following up with Dr Valera of Oncology at [place]
-She received Herceptin, Perjeta, carboplatin, Taxotere 10 days before as her 2nd chemotherapy cycle . Next chemotherapy cycle is May 15.
# Anemia - unclear etiology
- Hemoglobin has been low, could be anemia of chronic disease due to malignancy
- No signs of blood loss during the admission
#Chronic issues as below
# Moderate Malnutrition
- As per RD note, given history of breast cancer and chemotherapy, the patient is likely moderately malnourished
# GERD:
- Patient currently taking Pantoprazole 40 mg BID IV dosage.
#Heart Block:
left side below the clavicle pacemaker placed.
the pt is stable.
Disposition: home today
Code Status: Full
Anticipated Discharge: Today
Subjective/Interval History
-
Date of Service: May 10, 2025
Feels significantly better. Nausea, vomiting resolved. Diarrhea much improved compared to prior
Objective Data
-
Labs:
Laboratory Results
05/10/25
07:00
WBC Pending
Hgb Pending
Hct Pending
Plt Count Pending
Sodium Pending
Potassium Pending
Chloride Pending
Carbon Dioxide Pending
BUN Pending
Creatinine Pending
Glucose Pending
Calcium Pending
WBC 35.6
Hgb 10.1
K+ 4.5
Mg2+ 2.3
Vital Signs:
Vital Signs
Temp Pulse Resp BP Pulse Ox
98.1 F 84 18 140/74 99
05/10/25 03:16 05/10/25 03:16 05/10/25 03:16 05/10/25 03:16 05/10/25 03:16
I&O
05/09/25 05/10/25 05/11/25
06:59 06:59 06:59
Intake Total 1335 / 1335 810 / 810
Balance 1335 / 1335 810 / 810
Review of Systems
-
All other systems: Reviewed and negative
Physical Exam
-
General: No Apparent Distress
HEENT: Normocephalic and Atraumatic
Respiratory: Clear to Auscultation
Cardiac: Regular Rhythm
GI: Nontender
Musculoskeletal: Other (1+ lower extremity edema)
Skin: Warm and Dry
Neuro: Awake and Alert
[2025-05-10 07:38] VITALS: BP 127/74
[2025-05-10 07:54] LABS: Blood Urea Nitrogen 8 mg/dl (7-17); Calcium 8.5 mg/dl (8.4-10.2); Carbon Dioxide 29 mmol/L (22-30); Chloride 103 mmol/L (98-107); Estimated Creatinine Clearance 81 ml/min; Glucose 89 mg/dl (70-99); Magnesium 2.3 mg/dl (1.6-2.3); Potassium 4.5 mmol/L (3.5-5.1); Sodium 136 mmol/L (135-145); eGFR > 60.00
[2025-05-10 07:57] LABS: Hematocrit 30.6 % (37.0-47.0); Hemoglobin 10.1 g/dL (12.0-16.0); Mean Corp Hgb Conc. 33.0 g/dL (33.0-37.0); Mean Corpuscular Volume 87.4 fL (81.0-99.0); Platelet Count 194 10^3/uL (130-400); Red Cell Dist. Width 15.9 % (11.5-14.5)
[2025-05-10] MEDS: MAGIC OR MIRACLE MOUTHWASH PO ×2 (08:20→11:34)
[2025-05-10] MEDS: CLARITIN 10 MG PO (08:21)
[2025-05-10] MEDS: DELTASONE 20 MG PO (08:21)
[2025-05-10] MEDS: LASIX 20 MG PO (08:21)
[2025-05-10] MEDS: ERYTHROMYCIN 0.5% OPHTHALMIC OINTMENT 1 APPLIC OPHTH (08:22)
[2025-05-10] MEDS: FLAGYL 500 MG 100 IV (08:22)
[2025-05-10] MEDS: NSS (PRESERVATIVE FREE) 10 ML IV (08:22)
[2025-05-10] MEDS: PROTONIX IV 40 MG IV (08:23)
--- NOTE | 2025-05-10 10:11 | CM ---
Reviewed the chart notes. CM continues to be available to patient/family and is monitoring medical plan for needs at discharge.
Plan: Discharge to home when medically stable with resumption of [facility].
[facility]
[2025-05-10 11:38] VITALS: BP 141/87
[2025-05-10] MEDS: ERYTHROMYCIN 0.5% OPHTHALMIC OINTMENT OPHTH (12:30)
[2025-05-10] MEDS: ROCEPHIN IV (14:18)
[2025-05-10] MEDS: STERILE WATER FOR INJECTION IV (14:18)
[2025-05-10 14:59] VITALS: BP 129/86
--- NOTE | 2025-05-10 16:15 | W.DCSUMMARY ---
Discharge Summary
Discharge Data
Date of Admission: 05/02/25
Date of Discharge: 05/10/25
-
Pending Results: No
Hospital Course
Discharging Physician : Rj Lindsey MD; Steven Tovar MD
Disposition : Home
Primary care physician : Lorene Giles
Principal Discharge diagnosis : Nausea, diarrhea, abdominal pain (Dehydration) secondary to pancolitis and/or reaction to chemotherapy.
Hospital Course :
# Triple positive breast cancer with bilateral mastectomy,
# Heart block s/p pacemaker.
# GERD
# Heart Block
69 y/o female with pmh/0 triple positive B/L breast cancer with B/L mastectomy, Heart block s/p pacemaker, and received 2 nd cycle of chemotherapy 10 days ago at [facility] which includes herceptin, Pertuzumab, carboplatin, taxotere presented
with ED for intractable vomiting, diarrhea, cramping abdominal pain. Initial Blood work showed an elevated WBC count, a stool heme occult test was positive, and a CT scan revealed pancolitis. Gastro consulted and recommended to continue Piptaz. GIT
symptoms improved with Piptaz, but she started to experience red erythematous rashes- erythromelagia ( she experienced similar episodes at her previous chemotherapy cycle) started on prednisone 20 mg and continued for a 5-day�course, along with
hydrocortisone cream for topical application. She has completed this 5 day course and then was discharged. Patient was getting better. Piptaz was switched to Ceftriaxone 1000mg, Flagyl 500 mg on (DAY 2), and�advised to complete the antibiotic course
of 10 days. Potassium repletion was administered�for the low potassium level. The patient was stable while on discharge and has been advised to notify the oncologist team in the future regarding the rash side effect profile associated with her
chemotherapy�agents. The patient is on full code with a disposition status of�Home. Follow up in future with PCP in a week of discharge. Patient was advised to follow-up with Gastroenterology as an outpatient.
She has plans to continue her chemotherapy regimen next week. She was counseled on the PO antibiotics cefdinir and metronidazole to be continued for 5 more days (10 day total course) for the pancolitis reported on CT imaging.
Her electrolytes during the admission were notable for potassium measurements down to 2.7, however, she received IV repletion. On discharge, her K+ and Mg2+ levels were 4.5 and 2.3, respectively.
Important imaging findings :
CT SCAN (05/04/2025): Severe pancolitis, likely infectious or inflammatory. No pneumatosis intestinalis or extraluminal air.
Discharge Plan
-
Patient Disposition: Home (Routine Discharge)
Discharge Diagnosis/Procedures: pancolitis, dehydration
Condition: Good
Diet: Regular
Activity: No restrictions
Driving Restrictions: As prior to admission
Bathing Restrictions: None
Referrals:
Lorene Giles MD [Family Provider, [facility]]
Jeffy Leggett DO [Active, Gastroenterology] - in two to four weeks
Additional Discharge Medication Instructions: Take Pantoprazole 40mg twice per day for two more weeks, then decrease to 40mg once per day
take Cefdinir 300mg twice a day for 5 days
Take metronizadole 500mg tablet three times a day for 5 days
Prescriptions:
New
cefdinir 300 mg capsule
300 mg PO BID Qty: 10 0RF
metronidazole 500 mg tablet
500 mg PO Q8H Qty: 15 0RF
Continued
ondansetron HCl 8 mg tablet
8 mg PO Q8HPRN PRN (Reason: nausea/vomiting)
diphenoxylate-atropine 2.5-0.025 mg tablet
1 tab PO Q8HPRN PRN (Reason: diarrhea)
tramadol 50 mg Tablet
50 mg PO Q4HPRN PRN (Reason: severe pain)
Patient Comments:
05/02/2025, filled on 04/07/2025 for 30 tabs per PDMP.
dexamethasone 0.5 mg/5 mL elixir
0.5 mg PO Q6H
trazodone 100 mg tablet
100 mg PO HS
dexamethasone 4 mg tablet
0 mg PO DIRECTED
Rx Instructions:
Take 2 tabs (8 mg) BID the day before and the day after chemo treatment.
zolpidem 10 mg tablet
10 mg PO HS
loratadine 10 mg Capsule
10 mg PO DAILY
pantoprazole 20 mg tablet,delayed release (DR/EC)
20 mg PO HS 30 Days Qty: 60 0RF
Discharge Orders:
Discharge Patient (As Directed); Ordered 05/10/25
Ordered By: Hao Godfrey
Discharge Date and Time
Discharge Date/Time: 05/10/25 15:15
Print Language: NIGERIAN
== END 2025-05-10 15:15 | disposition home or self-care (01) | DRG 394 ==
LOC: 2 NORTH 19:47
PROVIDERS: Emergency Medicine; Internal Medicine; ADMITTING PHYSICIAN Internal Medicine; ATTENDING PHYSICIAN Hospitalist; CONSULT PHYSICIAN Student in an Organized Health Care Education/Training Program; EMERGENCY PHYSICIAN Emergency Medicine; FAMILY PHYSICIAN Family Medicine
DX: K52.1 Toxic gastroenteritis and colitis (principal); A09 Infectious gastroenteritis and colitis, unspecified; D61.818 Other pancytopenia; E44.0 Moderate protein-calorie malnutrition; T45.1X5A Adverse effect of antineoplastic and immunosuppressive drugs, initial encounter; I44.7 Left bundle-branch block, unspecified; C50.919 Malignant neoplasm of unspecified site of unspecified female breast; K21.9 Gastro-esophageal reflux disease without esophagitis; R03.0 Elevated blood-pressure reading, without diagnosis of hypertension; G47.9 Sleep disorder, unspecified; E86.0 Dehydration; E87.6 Hypokalemia; R21 Rash and other nonspecific skin eruption; R22.43 Localized swelling, mass and lump, lower limb, bilateral; E83.42 Hypomagnesemia; D63.0 Anemia in neoplastic disease; Z68.27 Body mass index [BMI] 27.0-27.9, adult; Z17.31 Human epidermal growth factor receptor 2 positive status; Z95.0 Presence of cardiac pacemaker
CPT/HCPCS: 74178; 80048; 80053; 83605; 83690; 83735; 84145; 85025; 85027; 86850; 86900; 86901; 87045; 87046; 87324; 87427; 87449; 89055; 93005; 96361; 96365; 96375; 99284; Q9967